=== PATIENT | male | born 1950 | race Caucasian/White ===

== ENCOUNTER 2019-02-28 13:31 | Inpatient (IN) | payer MEDICARE ==
[~2019-02-28] VITALS: Ht 175.3 cm; Wt 122.6 kg
[2019-02-28] MEDS ORDERED: [UNRECOGNIZED DRUG - CODE] PO (17:15)
[2019-02-28] MEDS ORDERED: LOPE2CAP PO (17:15)
[2019-02-28] MEDS ORDERED: WARF2.5T71 PO (17:15)
[2019-02-28] MEDS ORDERED: MULT1TAB52 PO (17:15)
[2019-02-28] MEDS ORDERED: POTA10TA12 PO (17:15)
[2019-02-28] MEDS ORDERED: ALLO100T PO (17:15)
[2019-02-28] MEDS ORDERED: CHOL100013 PO (17:15)
[2019-02-28] MEDS ORDERED: GLIM1TAB2 PO (17:15)
[2019-02-28] MEDS ORDERED: ASPI-630 PO (17:15)
[2019-02-28] MEDS ORDERED: LEVE500T6 PO (17:15)
[2019-02-28] MEDS ORDERED: LISI-338 PO (17:15)
[2019-02-28] MEDS ORDERED: ISOS30TA4 PO (17:15)
[2019-02-28] MEDS ORDERED: CARV3.1210 PO (17:15)
[2019-02-28] MEDS ORDERED: TORS20TA2 PO (17:15)
[2019-02-28] MEDS: CARVEDILOL 3.125 MG TABLET. PO SCH (17:55)
[2019-02-28] MEDS: WARFARIN 2.5 MG TABLET. PO SCH (17:55)
[2019-02-28 19:00] VITALS: BP 88/58
[2019-02-28] MEDS: LISINOPRIL 5 MG TABLET. PO SCH (21:00)
[2019-02-28] MEDS: guaiFENesin DM 600/30MG 1 TAB TAB.ER.12H PO SCH (21:15)
[2019-02-28] MEDS: levETIRAcetam 500 MG TABLET PO SCH (21:15)
[2019-02-28 23:46] VITALS: BP 104/65
[2019-03-01] VITALS (7 sets, daily range): BP systolic 90–119; BP diastolic 53–68
[2019-03-01 04:49] LABS: BASO # 0.1 x10^3/uL (0.0-0.2); BASO % 1 % (0-3); EOS # 0.3 x10^3/uL (0.0-0.7); EOS % 4 % (0-3); HEMATOCRIT 35.7 % (39.0-53.0); HEMOGLOBIN 11.4 g/dL (13.0-17.5); LYMPH % 14 % (24-48); MEAN CORPUSCULAR HEMOGLOBIN 29 pg (25-35); MEAN CORPUSCULAR HGB CONC 32 g/dL (31-37); MEAN CORPUSCULAR VOLUME 89 fL (79-100); MONO # 0.6 x10^3/uL (0.0-1.1); MONO % 9 % (0-9); NEUT # 5.1 x10^3uL (1.8-7.7); NEUT % 72 % (31-73); PLATELET COUNT 136 x10^3/uL (140-400); RED BLOOD COUNT 4.01 x10^6/uL (4.30-5.70); RED CELL DISTRIBUTION WIDTH 16.7 % (11.5-14.5); WHITE BLOOD COUNT 7.1 x10^3/uL (4.0-11.0)
[2019-03-01 05:28] LABS: ALBUMIN 3.1 g/dL (3.4-5.0); ALBUMIN/GLOBULIN RATIO 0.7 (1.0-1.7); CALCIUM 9.3 mg/dL (8.5-10.1); CREATININE 2.9 mg/dL (0.7-1.3); GFR 21.7; POTASSIUM 3.3 mmol/L (3.5-5.1); TOTAL BILIRUBIN 0.6 mg/dL (0.2-1.0); TOTAL PROTEIN 7.3 g/dL (6.4-8.2)
[2019-03-01] MEDS: CHOLECALCIFEROL (VITAMIN D3) 1,000 UNIT TABLET PO SCH (08:29)
[2019-03-01] MEDS: levETIRAcetam 500 MG TABLET PO SCH (08:32)
[2019-03-01] MEDS: MULTIVITAMIN with MINERAL TABLET. PO SCH (08:33)
[2019-03-01] MEDS: ASPIRIN CHEWABLE 81 MG TABLET. PO SCH (08:34)
[2019-03-01] MEDS: guaiFENesin DM 600/30MG 1 TAB TAB.ER.12H PO SCH ×2 (08:34→21:34)
[2019-03-01] MEDS: POTASSIUM CHLORIDE 10 MEQ TABLET.ER. PO SCH (08:34)
[2019-03-01] MEDS: ALLOPURINOL 100 MG TABLET. PO SCH (08:35)
[2019-03-01] MEDS: CARVEDILOL 3.125 MG TABLET. PO SCH ×2 (08:36→17:48)
[2019-03-01] MEDS: ISOSORBIDE MONONITRATE ER 30 MG TAB.ER.24H PO SCH (08:37)
[2019-03-01] MEDS: LISINOPRIL 5 MG TABLET. PO SCH ×2 (08:38→21:35)
[2019-03-01] MEDS ORDERED: LOPERAMIDE 2 MG CAPSULE PO SCH (09:00)
[2019-03-01] MEDS ORDERED: TORSEMIDE 20 MG TABLET. PO SCH (09:00)
[2019-03-01] MEDS ORDERED: GLIMEPIRIDE 2 MG TABLET. PO SCH (09:00)
--- NOTE | 2019-03-01 09:45 | PDOC1 ---
History and Physical Date of Admission Date of Admission DATE: 03/01/19 TIME: 09:45 Identification/Chief Complaint Chief Complaint Chest pain Source Source: Chart review, Patient History of Present Illness History of Present Illness Mr Flores is a 69 year old male with PMHx Morbid obesity, Chronic combined systolic and diastolic heart failure, EF 25%, Ellen, CAD, HTN, HLD, Sz (ruptured AVM, TBI), Gout, CKD IV, DM2. He apparently was initially diagnosed with heart failure in the and has most recently been evaluated by [facility] after a recent move from [place] where he was followed in a heart failure clinic and with n ephrology. He denies prior cardiac cath, but does note in [place], [place] in 2006 he presented with NSTEMI and was recommended to have cath at that time. [place] records indicate his prior refusal of cath as well. He denies any prior education or offer of ICD though records also indicate he has previously declined this as well, and he definitely refuses this with me. He reports chr onic severe lymphedema which has been worsening over the last several months, and notes he has home Lymphapress and velcro compression stockings. He reports chronic orthopnea and sleeping in a chair for the last couple years. [facility] has previously recommended IV diuretics and inotropic infusion weekly He reports his last episode of chest pain was yesterday relieved with nitrates. He denies palpitations but is chronically in atrial fibrillation for which he is on Coumadin with a therapeutic INR. Past Surgical History: Other (craniotoym, AVM, lipoma resection, vasectomy) Family History adopted Social History prior smoker, quit at age 20, no significant ETOH, no illicit drugs. Moved her from [place] in early January. Currently living [place]. He reports ill and taking care of young grandchildren. VITALS Vital Signs Date Time Temp Pulse Resp B/P (MAP) Pulse Ox O2 Delivery O2 Flow Rate FiO2 02/28/19 08:54 64 124/85 02/28/19 08:00 Nasal Cannula 2.0 02/28/19 06:55 20 96 02/28/19 06:12 97.7 Labs Laboratory Tests Test 02/27/19 15:00 02/27/19 16:45 02/27/19 16:50 02/27/19 16:57 D-Dimer (Naheed) 0.28 mg/L (0.00-0.50) White Blood Count 9.7 x10^3/uL (4.0-11.0) Red Blood Count 4.14 x10^6/uL (4.30-5.70) Hemoglobin 12.0 g/dL (13.0-17.5) Hematocrit 36.5 % (39.0-53.0) Mean Corpuscular Volume 88 fL (79-100) Mean Corpuscular Hemoglobin 29 pg (25-35) Mean Corpuscular Hemoglobin Concent 33 g/dL (31-37) Red Cell Distribution Width 16.1 % (11.5-14.5) Platelet Count 145 x10^3/uL (140-400) Neutrophils (%) (Auto) 78 % (31-73) Lymphocytes (%) (Auto) 10 % (24-48) Monocytes (%) (Auto) 9 % (0-9) Eosinophils (%) (Auto) 3 % (0-3) Basophils (%) (Auto) 1 % (0-3) Neutrophils # (Auto) 7.5 x10^3uL (1.8-7.7) Lymphocytes # (Auto) 0.9 x10^3/uL (1.0-4.8) Monocytes # (Auto) 0.9 x10^3/uL (0.0-1.1) Eosinophils # (Auto) 0.3 x10^3/uL (0.0-0.7) Basophils # (Auto) 0.1 x10^3/uL (0.0-0.2) Sodium Level 145 mmol/L (136-145) Potassium Level 3.3 mmol/L (3.5-5.1) Chloride Level 101 mmol/L (98-107) Carbon Dioxide Level 37 mmol/L (21-32) Anion Gap 7 (6-14) Blood Urea Nitrogen 142 mg/dL (8-26) Creatinine 2.6 mg/dL (0.7-1.3) Estimated GFR (Cockcroft-Gault) 24.6 BUN/Creatinine Ratio 55 (6-20) Glucose Level 155 mg/dL (70-99) Lactic Acid Level 0.7 mmol/L (0.4-2.0) Calcium Level 9.8 mg/dL (8.5-10.1) Total Bilirubin 0.3 mg/dL (0.2-1.0) Aspartate Amino Transf (AST/SGOT) 20 U/L (15-37) Alanine Aminotransferase (ALT/SGPT) 22 U/L (16-63) Alkaline Phosphatase 91 U/L (46-116) Troponin I Quantitative 0.085 ng/mL (0-0.055) SA-Gve-I-Type Natriuretic Peptide 1326 pg/mL (0-124) Total Protein 7.6 g/dL (6.4-8.2) Albumin 3.2 g/dL (3.4-5.0) Albumin/Globulin Ratio 0.7 (1.0-1.7) Prothrombin Time 19.3 SEC (9.4-11.4) Prothromb Time International Ratio 2.0 (0.9-1.1) Creatine Kinase 160 U/L (39-308) Glucose (Fingerstick) 145 mg/dL (70-99) Test 02/27/19 18:33 02/27/19 22:00 02/28/19 05:54 02/28/19 07:44 Urine Collection Type Unknown Urine Color Straw Urine Clarity Clear Urine pH 6.0 Urine Specific [place] 1.010 Urine Protein Neg (NEG-TRACE) Urine Glucose (UA) Neg mg/dL (NEG) Urine Ketones (Stick) Neg mg/dL (NEG) Urine Blood Trace (NEG) Urine Nitrite Neg (NEG) Urine Bilirubin Neg (NEG) Urine Urobilinogen Dipstick 0.2 mg/dL (0.2 mg/dL) Urine Leukocyte Esterase Neg (NEG) Urine RBC 0 /HPF (0-2) Urine WBC 0 /HPF (0-4) Urine Squamous Epithelial Cells Occ /LPF Urine Bacteria 0 /HPF (0-FEW) Troponin I Quantitative 0.094 ng/mL (0-0.055) 0.088 ng/mL (0-0.055) White Blood Count 7.7 x10^3/uL (4.0-11.0) Red Blood Count 4.10 x10^6/uL (4.30-5.70) Hemoglobin 11.9 g/dL (13.0-17.5) Hematocrit 36.3 % (39.0-53.0) Mean Corpuscular Volume 89 fL (79-100) Mean Corpuscular Hemoglobin 29 pg (25-35) Mean Corpuscular Hemoglobin Concent 33 g/dL (31-37) Red Cell Distribution Width 16.6 % (11.5-14.5) Platelet Count 134 x10^3/uL (140-400) Neutrophils (%) (Auto) 71 % (31-73) Lymphocytes (%) (Auto) 13 % (24-48) Monocytes (%) (Auto) 11 % (0-9) Eosinophils (%) (Auto) 4 % (0-3) Basophils (%) (Auto) 1 % (0-3) Neutrophils # (Auto) 5.4 x10^3uL (1.8-7.7) Lymphocytes # (Auto) 1.0 x10^3/uL (1.0-4.8) Monocytes # (Auto) 0.8 x10^3/uL (0.0-1.1) Eosinophils # (Auto) 0.3 x10^3/uL (0.0-0.7) Basophils # (Auto) 0.1 x10^3/uL (0.0-0.2) Prothrombin Time 21.4 SEC (9.4-11.4) Prothromb Time International Ratio 2.2 (0.9-1.1) Sodium Level 145 mmol/L (136-145) Potassium Level 3.1 mmol/L (3.5-5.1) Chloride Level 102 mmol/L (98-107) Carbon Dioxide Level 35 mmol/L (21-32) Anion Gap 8 (6-14) Blood Urea Nitrogen 141 mg/dL (8-26) Creatinine 2.5 mg/dL (0.7-1.3) Estimated GFR (Cockcroft-Gault) 25.7 Glucose Level 147 mg/dL (70-99) Calcium Level 9.1 mg/dL (8.5-10.1) Glucose (Fingerstick) 134 mg/dL (70-99) Images CXR - IMPRESSION: Mild atelectasis versus possible small infiltrate lung bases. EKG - atrial fibrillation, CVR, left axis and early R transition. No acute ischemic changes Assessment/Plan 1. Chest pain, resolved with nitrates. mild troponin elevation consistent with NSTEMI. currently pain free. Check echo, lipids, continue aspirin, imdur and beta maurilio. 2. Prior MO and presumed CAD - no prior cardiac cath though it is unclear as to a possible prior refusal on the patients part. 3. acute on chronic combined systolic and diastolic heart failure - clinically decompensated and NYHA class III-IV. 4. severe dilated cardiomyopathy - EF 25% in 2016. repeat echo, continue current beta maurilio, ACEI, bumex and nitrates. consider Entresto when stable. 5. CKD stage IV - suggest nephrology evaluation 6. Hypertension - fair control. goal SBY >/=90 mmHg with EF 25% 7. chronic atrial fibrillation with CVR, history of bradycardia. On Warfarin for stroke prophylaxis with INR of 2.2 8. Chronic lymphedema 9. diabetes mellitus 10. morbid obesity Family History Family History: Coronary Artery Disease Social History Smoke: No ALCOHOL: none Drugs: None Current Medications Current Medications Current Medications Allopurinol (Zyloprim) 100 mg DAILY PO Last administered on 03/01/19 08:35; Start 03/01/19 at 09:00 Aspirin (Children'S Aspirin) 81 mg DAILY PO Last administered on 03/01/19 08:34; Start 03/01/19 at 09:00 Carvedilol (Coreg) 3.125 mg BIDWMEALS PO Last administered on 03/01/19 08:36; Start 02/28/19 at 18:00 Isosorbide Mononitrate (Imdur) 30 mg DAILY PO Last administered on 03/01/19 08:37; Start 03/01/19 at 09:00 Levetiracetam (Keppra) 500 mg BID PO Last administered on 03/01/19 08:32; Start 02/28/19 at 21:00 Potassium Chloride (Klor-Con) 10 meq DAILY08 PO Last administered on 03/01/19at 08:34; Start 03/01/19 at 08:00 Warfarin Sodium (Coumadin - No Dose Today) 1 each DAILY MC ; Start 03/01/19 at 09:00; Status UNV Vitamin D (Vitamin D3) 1,000 unit DAILY PO Last administered on 03/01/19at 08:29; Start 03/01/19 at 09:00 Glimepiride (Amaryl) 1 mg DAILY PO Last administered on 03/01/19at 08:37; Start 03/01/19 at 09:00 Guaifenesin (MUCINEX ER with DM) 1 tab BID PO Last administered on 03/01/19at 08:34; Start 02/28/19 at 21:00 Lisinopril (Prinivil) 5 mg BID PO Last administered on 03/01/19at 08:38; Start 02/28/19 at 21:00 Loperamide HCl (Imodium) 2 mg DAILY PO ; Start 03/01/19 at 09:00; Stop 03/01/19 at 09:27; Status DC Multivitamins (Thera M Plus) 1 tab DAILY PO Last administered on 03/01/19at 08:33; Start 03/01/19 at 09:00 Torsemide (Demadex) 20 mg DAILY PO ; Start 03/01/19 at 09:00 Warfarin Sodium (Coumadin Per Pharmacy) 1 each PRN DAILY PRN MC SEE COMMENTS Last administered on 02/28/19at 17:48; Start 02/28/19 at 17:30 Warfarin Sodium (Coumadin) 2.5 mg DAILY16 PO Last administered on 02/28/19at 17:55; Start 02/28/19 at 18:00 Loperamide HCl (Immodium Oral Susp) 1 mg DAILY PO ; Start 03/01/19 at 09:45 Active Scripts Active Reported Glimepiride 1 Mg Tablet 1 Tab PO DAILY Vitamin D (Cholecalciferol (Vitamin D3)) 1,000 Unit Capsule 1 Cap PO DAILY Isosorbide Mononitrate Er (Isosorbide Mononitrate) 30 Mg Tab.er.24h 1 Tab PO DAILY Guaifenesin 1,200 Mg Tab.er.12h 1,200 Mg PO PRN 3-4XDAILY Potassium Chloride 10 Meq Tab.sr.24h 10 Meq PO DAILY Lisinopril 5 Mg Tablet 1 Tab PO BID Multivitamins (Multivitamin) 1 Each Tablet 1 Tab PO DAILY Aspirin 81 Mg Tab.chew 1 Tab PO DAILY Warfarin Sodium 2.5 Mg Tablet 2.5 Mg PO DAILY Loperamide (Loperamide Hcl) 2 Mg Capsule 1 Mg PO DAILY Levetiracetam 500 Mg Tablet 1 Tab PO BID Torsemide 20 Mg Tablet 5 Tab PO DAILY Carvedilol (Carvedilol) 3.125 Mg Tablet 3.125 Mg PO BIDWMEALS Allopurinol 100 Mg Tablet 1 Tab PO DAILY Allergies Allergies: Coded Allergies: Sulfa (Sulfonamide Antibiotics) (Verified Allergy, Intermediate, 02/28/19) milk (Verified Allergy, Intermediate, 02/28/19) ROS Review of System General: YES: Fatigue PSYCHOLOGICAL ROS: YES: Memory difficulties, Other (increased stress) HEENT: YES: Vertigo ENDOCRINE: YES: Palpitations Respiratory: YES: Cough, Orthopnea, SOB with excertion Cardiovascular: yes: Chest Pain, Palpitations, Orthopnea, Paroxysmal Noc. Dyspnea, Edema Gastrointestinal: YES: Other (abdominal distension) Musculoskeletal: YES: Other (lymphedema) Skin: YES: Other (weeping sores and erythema bilateral lower extremities with chronic lymphedema left>right. uses compression garmet and pump for lymphedema treatment) ALLERGY AND IMMUNOLOGY: No: Hives, Insect Bite Sensitivity, Itchy/Watery Eyes, Nasal Congestion, Post Nasal Drip, Seasonal Allergies, Other Hematological and Lymphatic: No: Bleeding Problems, Blood Clots, Blood Transfusions, Brusing, Night Sweats, Pallor, Swollen Lymph Nodes, Other Breast: No New/Changing Breast Lumps, No Nipple changes, No Nipple discharge, No Other Genitourinary: YES Urgency; No Dysuria, No Frequency, No Incontinence, No Hematuria, No Retention, No Discharge, No Pain, No Flank Pain, No Other, No , No , No , No , No , No , No Neurological: No Behavorial Changes, No Bowel/Bladder ControlChng, No Confusion, No Dizziness, No Gait Disturbance, No Headaches, No Impaired Coord/balance, No Memory Loss, No Numbness/Tingling, No Seizures, No Speech Problems, No Tremors, No Visual Changes, No Weakness, No Other Physical Exam General: Alert, Cooperative HEENT: Atraumatic, PERRLA, EOMI, Mucous membr. moist/pink Lungs: Other (Bibasilar crackles) Heart: S1S2, RRR Abdomen: Normal bowel sounds, Soft, No tenderness, No hepatosplenomegaly, No masses Rectal Exam: not examined Extremities: No clubbing, No cyanosis, Normal pulses, No tenderness/swelling Skin: No rashes, No breakdown, No significant lesion Neuro: Normal gait, Normal speech, Strength at 5/5 X4 ext, Normal tone, Sensation intact, Cranial nerves 3-12 NL, Reflexes 2+ Psych/Mental Status: Mental status NL, Mood NL Vitals Vitals Vital Signs Date Time Temp Pulse Resp B/P (MAP) Pulse Ox O2 Delivery O2 Flow Rate FiO2 03/01/19 08:38 78 03/01/19 08:34 117/64 (81) 03/01/19 07:00 98.0 22 97 Nasal Cannula 2.0 98.0 Labs Labs Laboratory Tests Test 02/28/19 17:01 02/28/19 21:00 03/01/19 04:00 03/01/19 07:20 Glucose (Fingerstick) 145 mg/dL (70-99) 178 mg/dL (70-99) 134 mg/dL (70-99) White Blood Count 7.1 x10^3/uL (4.0-11.0) Red Blood Count 4.01 x10^6/uL (4.30-5.70) Hemoglobin 11.4 g/dL (13.0-17.5) Hematocrit 35.7 % (39.0-53.0) Mean Corpuscular Volume 89 fL (79-100) Mean Corpuscular Hemoglobin 29 pg (25-35) Mean Corpuscular Hemoglobin Concent 32 g/dL (31-37) Red Cell Distribution Width 16.7 % (11.5-14.5) Platelet Count 136 x10^3/uL (140-400) Neutrophils (%) (Auto) 72 % (31-73) Lymphocytes (%) (Auto) 14 % (24-48) Monocytes (%) (Auto) 9 % (0-9) Eosinophils (%) (Auto) 4 % (0-3) Basophils (%) (Auto) 1 % (0-3) Neutrophils # (Auto) 5.1 x10^3uL (1.8-7.7) Lymphocytes # (Auto) 1.0 x10^3/uL (1.0-4.8) Monocytes # (Auto) 0.6 x10^3/uL (0.0-1.1) Eosinophils # (Auto) 0.3 x10^3/uL (0.0-0.7) Basophils # (Auto) 0.1 x10^3/uL (0.0-0.2) Sodium Level 146 mmol/L (136-145) Potassium Level 3.3 mmol/L (3.5-5.1) Chloride Level 100 mmol/L (98-107) Carbon Dioxide Level 38 mmol/L (21-32) Anion Gap 8 (6-14) Blood Urea Nitrogen 146 mg/dL (8-26) Creatinine 2.9 mg/dL (0.7-1.3) Estimated GFR (Cockcroft-Gault) 21.7 BUN/Creatinine Ratio 50 (6-20) Glucose Level 146 mg/dL (70-99) Calcium Level 9.3 mg/dL (8.5-10.1) Total Bilirubin 0.6 mg/dL (0.2-1.0) Aspartate Amino Transf (AST/SGOT) 19 U/L (15-37) Alanine Aminotransferase (ALT/SGPT) 21 U/L (16-63) Alkaline Phosphatase 79 U/L (46-116) Total Protein 7.3 g/dL (6.4-8.2) Albumin 3.1 g/dL (3.4-5.0) Albumin/Globulin Ratio 0.7 (1.0-1.7) Laboratory Tests Test 02/28/19 17:01 02/28/19 21:00 03/01/19 04:00 03/01/19 07:20 Glucose (Fingerstick) 145 mg/dL (70-99) 178 mg/dL (70-99) 134 mg/dL (70-99) White Blood Count 7.1 x10^3/uL (4.0-11.0) Red Blood Count 4.01 x10^6/uL (4.30-5.70) Hemoglobin 11.4 g/dL (13.0-17.5) Hematocrit 35.7 % (39.0-53.0) Mean Corpuscular Volume 89 fL (79-100) Mean Corpuscular Hemoglobin 29 pg (25-35) Mean Corpuscular Hemoglobin Concent 32 g/dL (31-37) Red Cell Distribution Width 16.7 % (11.5-14.5) Platelet Count 136 x10^3/uL (140-400) Neutrophils (%) (Auto) 72 % (31-73) Lymphocytes (%) (Auto) 14 % (24-48) Monocytes (%) (Auto) 9 % (0-9) Eosinophils (%) (Auto) 4 % (0-3) Basophils (%) (Auto) 1 % (0-3) Neutrophils # (Auto) 5.1 x10^3uL (1.8-7.7) Lymphocytes # (Auto) 1.0 x10^3/uL (1.0-4.8) Monocytes # (Auto) 0.6 x10^3/uL (0.0-1.1) Eosinophils # (Auto) 0.3 x10^3/uL (0.0-0.7) Basophils # (Auto) 0.1 x10^3/uL (0.0-0.2) Sodium Level 146 mmol/L (136-145) Potassium Level 3.3 mmol/L (3.5-5.1) Chloride Level 100 mmol/L (98-107) Carbon Dioxide Level 38 mmol/L (21-32) Anion Gap 8 (6-14) Blood Urea Nitrogen 146 mg/dL (8-26) Creatinine 2.9 mg/dL (0.7-1.3) Estimated GFR (Cockcroft-Gault) 21.7 BUN/Creatinine Ratio 50 (6-20) Glucose Level 146 mg/dL (70-99) Calcium Level 9.3 mg/dL (8.5-10.1) Total Bilirubin 0.6 mg/dL (0.2-1.0) Aspartate Amino Transf (AST/SGOT) 19 U/L (15-37) Alanine Aminotransferase (ALT/SGPT) 21 U/L (16-63) Alkaline Phosphatase 79 U/L (46-116) Total Protein 7.3 g/dL (6.4-8.2) Albumin 3.1 g/dL (3.4-5.0) Albumin/Globulin Ratio 0.7 (1.0-1.7) VTE Prophylaxis Ordered VTE Prophylaxis Devices: Yes VTE Pharmacological Prophylaxi: Yes Assessment/Plan Assessment/Plan A/P: Acute on Chronic combined systolic and diastolic heart failure, EF 25% - on torsemide 100mg daily, previously. On statin, ASA, BB, on ADAN, will watch with CKD - on Imdur + hydralazine per EFT recommendations, not on spironolactone at this time, will d/w nephrology and cardiology as his CKD is a relative contraindication for this. 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 Nephrology consulted. May currently have cardiorenal syndrome, will diurese. Of note, he has made it clear he will never undergo dialysis DM2 - basal bolus plus regimen in house FEN - Cardiac diet PPX - Coumadin DNR/DNI Dispo - inpatient for acute CHF exacerbation with [facility]LE[facility]. Likely 2 midnights inpatient. SINAN RIVERO MD March 01, 2019 09:45
[2019-03-01] MEDS ORDERED: POTASSIUM CHLORIDE 20 MEQ TABLET.ER. PO ONE (11:15)
[2019-03-01] MEDS ORDERED: DEXTROSE 50% 25 GM / 50ML DISP.SYRIN. IV PRN (11:30)
[2019-03-01 11:37] LABS: PROTHROMBIN TIME PATIENT 24.9 SEC (11.7-14.0)
[2019-03-01] MEDS: INSULIN LISPRO 300 UNITS/3 ML INSULN.PEN. SQ SCH ×3 (12:00→21:00)
--- NOTE | 2019-03-01 12:11 | PDOC2 ---
CONSULT Date of Consult Date of Consult DATE: 03/01/19 TIME: 12:03 Reason for Consult Reason for Consult: ELENA Referring Physician Referring Physician: JOSEFA Identification/Chief Complaint Chief Complaint SOB Source Source: Chart review, Patient History of Present Illness Reason for Visit: THIS IS A 69 YR OLD WITH SOB AND ADMITTED WITH CHF. JUST MOVED HERE FROM [place], [place]. CR OF 2.9 AND BUN OF 146. HAS BEEN ON TORSEMIDE 100 DAILY AND A THIAZIDE. STATES THAT HE WAS SEEING A PROFESSOR OF ENVIRONMENTAL SCIENCE BACK THERE AND WAS TOLD THAT HIS KIDNEYS WORK AT 25%. STATES THAT HE ALWAYS HAS A HARD TIME LAYING FLAT AND CANNOT SLEEP IN THAT POSITION. DENIED ANY PROBLEMS EMPTYING HIS BLADDER AND DOES NOT HAVE ANY OTHER HX. NO NEPHROTOXINS OR HEMODYNAMIC INSTABILITY NOTED. HAS ALSO BEEN ON LISINOPRIL AND I SUSPECT HE HAS CM Past Medical History Cardiovascular: CAD, CHF, HTN Renal/: Chronic renal failure Endocrine: Diabetes Family History Family History: Coronary Artery Disease Social History No ALCOHOL: none Drugs: None Current Medications Current Medications Current Medications Allopurinol (Zyloprim) 100 mg DAILY PO Last administered on 03/01/19at 08:35; Start 03/01/19 at 09:00 Aspirin (Children'S Aspirin) 81 mg DAILY PO Last administered on 03/01/19at 08:34; Start 03/01/19 at 09:00 Carvedilol (Coreg) 3.125 mg BIDWMEALS PO Last administered on 03/01/19at 08:36; Start 02/28/19 at 18:00 Isosorbide Mononitrate (Imdur) 30 mg DAILY PO Last administered on 03/01/19at 08:37; Start 03/01/19 at 09:00 Levetiracetam (Keppra) 500 mg BID PO Last administered on 03/01/19at 08:32; Start 02/28/19 at 21:00; Stop 03/01/19 at 11:33; Status DC Potassium Chloride (Klor-Con) 10 meq DAILY08 PO Last administered on 03/01/19at 08:34; Start 03/01/19 at 08:00 Warfarin Sodium (Coumadin - No Dose Today) 1 each DAILY MC ; Start 03/01/19 at 09:00; Status UNV Vitamin D (Vitamin D3) 1,000 unit DAILY PO Last administered on 03/01/19at 08:29; Start 03/01/19 at 09:00 Glimepiride (Amaryl) 1 mg DAILY PO Last administered on 03/01/19at 08:37; Start 03/01/19 at 09:00; Stop 03/01/19 at 11:33; Status DC Guaifenesin (MUCINEX ER with DM) 1 tab BID PO Last administered on 03/01/19at 08:34; Start 02/28/19 at 21:00 Lisinopril (Prinivil) 5 mg BID PO Last administered on 03/01/19at 08:38; Start 02/28/19 at 21:00 Loperamide HCl (Imodium) 2 mg DAILY PO ; Start 03/01/19 at 09:00; Stop 03/01/19 at 09:27; Status DC Multivitamins (Thera M Plus) 1 tab DAILY PO Last administered on 03/01/19at 08:33; Start 03/01/19 at 09:00 Torsemide (Demadex) 20 mg DAILY PO ; Start 03/01/19 at 09:00; Stop 03/01/19 at 10:50; Status DC Warfarin Sodium (Coumadin Per Pharmacy) 1 each PRN DAILY PRN MC SEE COMMENTS Last administered on 02/28/19at 17:48; Start 02/28/19 at 17:30 Warfarin Sodium (Coumadin) 2.5 mg DAILY16 PO Last administered on 02/28/19at 17:55; Start 02/28/19 at 18:00 Loperamide HCl (Immodium Oral Susp) 1 mg DAILY PO ; Start 03/01/19 at 09:45 Bumetanide (Bumex) 5 mg DAILY IV ; Start 03/01/19 at 11:15 Potassium Chloride (Klor-Con) 20 meq 1X ONCE PO ; Start 03/01/19 at 11:15; Stop 03/01/19 at 11:21; Status DC Insulin Glargine (Lantus) 4 units QHS SQ ; Start 03/01/19 at 21:00 Insulin Human Lispro (HumaLOG) 0-5 UNITS TIDWMEALHC SQ ; Start 03/01/19 at 12:00 Dextrose (Dextrose 50%-Water Syringe) 12.5 gm PRN Q15MIN PRN IV SEE COMMENTS; Start 03/01/19 at 11:30 Hydralazine HCl (Apresoline) 10 mg TID PO ; Start 03/01/19 at 14:00 Active Scripts Active Reported Glimepiride 1 Mg Tablet 1 Tab PO DAILY Vitamin D (Cholecalciferol (Vitamin D3)) 1,000 Unit Capsule 1 Cap PO DAILY Isosorbide Mononitrate Er (Isosorbide Mononitrate) 30 Mg Tab.er.24h 1 Tab PO DAILY Guaifenesin 1,200 Mg Tab.er.12h 1,200 Mg PO PRN 3-4XDAILY Potassium Chloride 10 Meq Tab.sr.24h 10 Meq PO DAILY Lisinopril 5 Mg Tablet 1 Tab PO BID Multivitamins (Multivitamin) 1 Each Tablet 1 Tab PO DAILY Aspirin 81 Mg Tab.chew 1 Tab PO DAILY Warfarin Sodium 2.5 Mg Tablet 2.5 Mg PO DAILY Loperamide (Loperamide Hcl) 2 Mg Capsule 1 Mg PO DAILY Levetiracetam 500 Mg Tablet 1 Tab PO BID Torsemide 20 Mg Tablet 5 Tab PO DAILY Carvedilol (Carvedilol) 3.125 Mg Tablet 3.125 Mg PO BIDWMEALS Allopurinol 100 Mg Tablet 1 Tab PO DAILY Allergies Allergies: Coded Allergies: Sulfa (Sulfonamide Antibiotics) (Verified Allergy, Intermediate, 02/28/19) milk (Verified Allergy, Intermediate, 02/28/19) ROS General: YES: Fatigue PSYCHOLOGICAL ROS: YES: Anxiety Eyes: Yes Decreased vision HEENT: YES: Heacaches Respiratory: YES: Cough, Orthopnea, Shortness of breath Cardiovascular: yes Edema Gastrointestinal: Yes Constipation Genitourinary: YES Other (NOCTURIA) Musculoskeletal: Yes Muscular Weakness Neurological: Yes Weakness Skin: Yes Dry Skin Physical Exam General: Alert, Oriented X3, Cooperative, No acute distress HEENT: Atraumatic, PERRLA, EOMI Lungs: Other (DECREASED AT BASES) Heart: Regular rate, Normal S1, Normal S2 Abdomen: Normal bowel sounds, Soft Extremities: No clubbing, No cyanosis Skin: No breakdown Neuro: Normal speech Psych/Mental Status: Mental status NL, Mood NL MUSCULOSKELETAL: No joint tenderness, No deformity, Other (BELOW KNEE EDEMA 3+) Vitals VITALS Vital Signs Date Time Temp Pulse Resp B/P (MAP) Pulse Ox O2 Delivery O2 Flow Rate FiO2 03/01/19 10:46 97.6 71 22 104/55 (71) 95 Nasal Cannula 2.0 97.6 Labs Labs Laboratory Tests Test 02/28/19 17:01 02/28/19 21:00 03/01/19 04:00 03/01/19 07:20 Glucose (Fingerstick) 145 mg/dL (70-99) 178 mg/dL (70-99) 134 mg/dL (70-99) White Blood Count 7.1 x10^3/uL (4.0-11.0) Red Blood Count 4.01 x10^6/uL (4.30-5.70) Hemoglobin 11.4 g/dL (13.0-17.5) Hematocrit 35.7 % (39.0-53.0) Mean Corpuscular Volume 89 fL (79-100) Mean Corpuscular Hemoglobin 29 pg (25-35) Mean Corpuscular Hemoglobin Concent 32 g/dL (31-37) Red Cell Distribution Width 16.7 % (11.5-14.5) Platelet Count 136 x10^3/uL (140-400) Neutrophils (%) (Auto) 72 % (31-73) Lymphocytes (%) (Auto) 14 % (24-48) Monocytes (%) (Auto) 9 % (0-9) Eosinophils (%) (Auto) 4 % (0-3) Basophils (%) (Auto) 1 % (0-3) Neutrophils # (Auto) 5.1 x10^3uL (1.8-7.7) Lymphocytes # (Auto) 1.0 x10^3/uL (1.0-4.8) Monocytes # (Auto) 0.6 x10^3/uL (0.0-1.1) Eosinophils # (Auto) 0.3 x10^3/uL (0.0-0.7) Basophils # (Auto) 0.1 x10^3/uL (0.0-0.2) Prothrombin Time 24.9 SEC (11.7-14.0) Prothromb Time International Ratio 2.3 (0.8-1.1) Sodium Level 146 mmol/L (136-145) Potassium Level 3.3 mmol/L (3.5-5.1) Chloride Level 100 mmol/L (98-107) Carbon Dioxide Level 38 mmol/L (21-32) Anion Gap 8 (6-14) Blood Urea Nitrogen 146 mg/dL (8-26) Creatinine 2.9 mg/dL (0.7-1.3) Estimated GFR (Cockcroft-Gault) 21.7 BUN/Creatinine Ratio 50 (6-20) Glucose Level 146 mg/dL (70-99) Calcium Level 9.3 mg/dL (8.5-10.1) Magnesium Level 1.9 mg/dL (1.8-2.4) Total Bilirubin 0.6 mg/dL (0.2-1.0) Aspartate Amino Transf (AST/SGOT) 19 U/L (15-37) Alanine Aminotransferase (ALT/SGPT) 21 U/L (16-63) Alkaline Phosphatase 79 U/L (46-116) Total Protein 7.3 g/dL (6.4-8.2) Albumin 3.1 g/dL (3.4-5.0) Albumin/Globulin Ratio 0.7 (1.0-1.7) Test 03/01/19 11:27 Glucose (Fingerstick) 146 mg/dL (70-99) Laboratory Tests Test 02/28/19 17:01 02/28/19 21:00 03/01/19 04:00 03/01/19 07:20 Glucose (Fingerstick) 145 mg/dL (70-99) 178 mg/dL (70-99) 134 mg/dL (70-99) White Blood Count 7.1 x10^3/uL (4.0-11.0) Red Blood Count 4.01 x10^6/uL (4.30-5.70) Hemoglobin 11.4 g/dL (13.0-17.5) Hematocrit 35.7 % (39.0-53.0) Mean Corpuscular Volume 89 fL (79-100) Mean Corpuscular Hemoglobin 29 pg (25-35) Mean Corpuscular Hemoglobin Concent 32 g/dL (31-37) Red Cell Distribution Width 16.7 % (11.5-14.5) Platelet Count 136 x10^3/uL (140-400) Neutrophils (%) (Auto) 72 % (31-73) Lymphocytes (%) (Auto) 14 % (24-48) Monocytes (%) (Auto) 9 % (0-9) Eosinophils (%) (Auto) 4 % (0-3) Basophils (%) (Auto) 1 % (0-3) Neutrophils # (Auto) 5.1 x10^3uL (1.8-7.7) Lymphocytes # (Auto) 1.0 x10^3/uL (1.0-4.8) Monocytes # (Auto) 0.6 x10^3/uL (0.0-1.1) Eosinophils # (Auto) 0.3 x10^3/uL (0.0-0.7) Basophils # (Auto) 0.1 x10^3/uL (0.0-0.2) Prothrombin Time 24.9 SEC (11.7-14.0) Prothromb Time International Ratio 2.3 (0.8-1.1) Sodium Level 146 mmol/L (136-145) Potassium Level 3.3 mmol/L (3.5-5.1) Chloride Level 100 mmol/L (98-107) Carbon Dioxide Level 38 mmol/L (21-32) Anion Gap 8 (6-14) Blood Urea Nitrogen 146 mg/dL (8-26) Creatinine 2.9 mg/dL (0.7-1.3) Estimated GFR (Cockcroft-Gault) 21.7 BUN/Creatinine Ratio 50 (6-20) Glucose Level 146 mg/dL (70-99) Calcium Level 9.3 mg/dL (8.5-10.1) Magnesium Level 1.9 mg/dL (1.8-2.4) Total Bilirubin 0.6 mg/dL (0.2-1.0) Aspartate Amino Transf (AST/SGOT) 19 U/L (15-37) Alanine Aminotransferase (ALT/SGPT) 21 U/L (16-63) Alkaline Phosphatase 79 U/L (46-116) Total Protein 7.3 g/dL (6.4-8.2) Albumin 3.1 g/dL (3.4-5.0) Albumin/Globulin Ratio 0.7 (1.0-1.7) Test 03/01/19 11:27 Glucose (Fingerstick) 146 mg/dL (70-99) Assessment/Plan Assessment/Plan IMP ELENA WITH CR OF 2.9 AND BUN OF 146 CKD STAGE 4 CHF - ACUTE SYSTOLIC AND DIASTOLIC AFIB HX-ANTICOAGULATION DM II HX PLAN DIURESE CONT ADAN-I IF UNABLE TO DIURESE AND OR RENAL FXN IS WORSE HE WILL NEED DIALYSIS PT STATES THAT HE WILL NEVER DO DIALYSIS WILL CONT WITH SUPPORTIVE CARE FOR NOW MALLORIE HOLT MD March 01, 2019 12:11
--- NOTE | 2019-03-01 12:24 | NUR ---
Pharmacy Warfarin Dosing Note S:Pharmacy consulted to assist with anticoagulation therapy started with target INR: 2 -3 O:MILLA HEALY is a 69 year old M with Atrial Fibrillation LABS: Last INR: 2.3 Last HGB: 11.4 Last HCT: 35.7 Last PLT: 136 Last dose of 2.5 mg given on 02/28/19 at 1755 Previous Regimen: 2.5mg daily Vitamin K given: N Drug Interaction Changes: Ongoing Drug Interactions: A:INR of 2.3 is within desired range. Target range for this patient is: 2 -3 P: Warfarin dose: 2.5 mg Today at 1600 Bridge Therapy: None Next INR due 03/02/19 Pharmacy anticoagulation service will continue to follow. JEAN MARIE STEINBERG RPH, 03/01/19 [id number]
[2019-03-01] MEDS: BUMETANIDE 2.5 MG/10 ML VIAL. IV SCH (13:08)
[2019-03-01] MEDS: LOPERAMIDE 2 MG/15 ML ORAL SUSP. PO SCH (13:09)
--- NOTE | 2019-03-01 13:36 | NUR ---
FACULTY CO-SIGN I have reviewed the documentation by Aleksey Flores nursing home administrator, [facility]: Addendum: 03/01/19 at 1337 by ROSE ORTIZ RN Amended: Links added.
[2019-03-01] MEDS: hydrALAZINE 10 MG TABLET PO SCH ×2 (14:00→21:35)
--- NOTE | 2019-03-01 14:33 | PDOC ---
PROGRESS NOTES Subjective Subjective Patient seen and examined He is feeling better today and his pain has largely resolved. He was initially seen as a consult at [facility] and transferred yesterday to [place] for continued workup with additional consultants. Objective Objective Vital Signs Date Time Temp Pulse Resp B/P (MAP) Pulse Ox O2 Delivery O2 Flow Rate FiO2 03/01/19 10:46 97.6 71 22 104/55 (71) 95 Nasal Cannula 2.0 97.6 Intake and Output 03/01/19 07:00 Intake Total 200 ml Output Total 100 ml Balance 100 ml Intake Oral 200 ml Output Urine Total 100 ml # Voids 2 # Bowel Movements 1 Physical Exam Abdomen: Normal bowel sounds Heart: Other (irregularly irregular) General: mild distress Lungs: Other (mildly decreased breath sounds) Assessment Assessment 1. Non-ST elevated myocardial infarction. Patient initially evaluated at [facility] and transferred for further workup. He is now chest pain free. Echocardiogram has shown an ejection fraction of 25% and he does have a history of coronary artery disease. We discussed various options and the patient is quite clear in his wish not to have any invasive treatments including catheterizations. This has been discussed with the patient previously in other locations and he has refused previous interventions. He is looking and feeling better today. We will continue on baseline medical treatment. We'll continue to closely monitor. 2. Acute on chronic systolic heart failure with cardiomyopathy. Ejection frac tion of 25%. Responding reasonably well to treatment and will continue treatment with monitoring the patient's renal function. Again he has had previous discussions about AICD placement and he does not wish an AICD. 3. Chronic kidney disease. Creatinine is elevated as noted above. The renal service is seeing the patient. He is also expressed his wish not to have any dialysis treatment. 4. Hypertension. Reasonably controlled at this time. 5. Chronic atrial fibrillation. Rate controlled. Patient is treated with Coumadin with a therapeutic INR. Thank you for allowing us to participate in the care of your patient. Comment Review of Relevant I have reviewed the following items angeline (where applicable) has been applied. Labs Laboratory Tests Test 02/28/19 17:01 02/28/19 21:00 03/01/19 04:00 03/01/19 07:20 Glucose (Fingerstick) 145 mg/dL (70-99) 178 mg/dL (70-99) 134 mg/dL (70-99) White Blood Count 7.1 x10^3/uL (4.0-11.0) Red Blood Count 4.01 x10^6/uL (4.30-5.70) Hemoglobin 11.4 g/dL (13.0-17.5) Hematocrit 35.7 % (39.0-53.0) Mean Corpuscular Volume 89 fL (79-100) Mean Corpuscular Hemoglobin 29 pg (25-35) Mean Corpuscular Hemoglobin Concent 32 g/dL (31-37) Red Cell Distribution Width 16.7 % (11.5-14.5) Platelet Count 136 x10^3/uL (140-400) Neutrophils (%) (Auto) 72 % (31-73) Lymphocytes (%) (Auto) 14 % (24-48) Monocytes (%) (Auto) 9 % (0-9) Eosinophils (%) (Auto) 4 % (0-3) Basophils (%) (Auto) 1 % (0-3) Neutrophils # (Auto) 5.1 x10^3uL (1.8-7.7) Lymphocytes # (Auto) 1.0 x10^3/uL (1.0-4.8) Monocytes # (Auto) 0.6 x10^3/uL (0.0-1.1) Eosinophils # (Auto) 0.3 x10^3/uL (0.0-0.7) Basophils # (Auto) 0.1 x10^3/uL (0.0-0.2) Prothrombin Time 24.9 SEC (11.7-14.0) Prothromb Time International Ratio 2.3 (0.8-1.1) Sodium Level 146 mmol/L (136-145) Potassium Level 3.3 mmol/L (3.5-5.1) Chloride Level 100 mmol/L (98-107) Carbon Dioxide Level 38 mmol/L (21-32) Anion Gap 8 (6-14) Blood Urea Nitrogen 146 mg/dL (8-26) Creatinine 2.9 mg/dL (0.7-1.3) Estimated GFR (Cockcroft-Gault) 21.7 BUN/Creatinine Ratio 50 (6-20) Glucose Level 146 mg/dL (70-99) Calcium Level 9.3 mg/dL (8.5-10.1) Magnesium Level 1.9 mg/dL (1.8-2.4) Total Bilirubin 0.6 mg/dL (0.2-1.0) Aspartate Amino Transf (AST/SGOT) 19 U/L (15-37) Alanine Aminotransferase (ALT/SGPT) 21 U/L (16-63) Alkaline Phosphatase 79 U/L (46-116) Total Protein 7.3 g/dL (6.4-8.2) Albumin 3.1 g/dL (3.4-5.0) Albumin/Globulin Ratio 0.7 (1.0-1.7) Test 03/01/19 11:27 Glucose (Fingerstick) 146 mg/dL (70-99) Laboratory Tests Test 02/28/19 17:01 02/28/19 21:00 03/01/19 04:00 03/01/19 07:20 Glucose (Fingerstick) 145 mg/dL (70-99) 178 mg/dL (70-99) 134 mg/dL (70-99) White Blood Count 7.1 x10^3/uL (4.0-11.0) Red Blood Count 4.01 x10^6/uL (4.30-5.70) Hemoglobin 11.4 g/dL (13.0-17.5) Hematocrit 35.7 % (39.0-53.0) Mean Corpuscular Volume 89 fL (79-100) Mean Corpuscular Hemoglobin 29 pg (25-35) Mean Corpuscular Hemoglobin Concent 32 g/dL (31-37) Red Cell Distribution Width 16.7 % (11.5-14.5) Platelet Count 136 x10^3/uL (140-400) Neutrophils (%) (Auto) 72 % (31-73) Lymphocytes (%) (Auto) 14 % (24-48) Monocytes (%) (Auto) 9 % (0-9) Eosinophils (%) (Auto) 4 % (0-3) Basophils (%) (Auto) 1 % (0-3) Neutrophils # (Auto) 5.1 x10^3uL (1.8-7.7) Lymphocytes # (Auto) 1.0 x10^3/uL (1.0-4.8) Monocytes # (Auto) 0.6 x10^3/uL (0.0-1.1) Eosinophils # (Auto) 0.3 x10^3/uL (0.0-0.7) Basophils # (Auto) 0.1 x10^3/uL (0.0-0.2) Prothrombin Time 24.9 SEC (11.7-14.0) Prothromb Time International Ratio 2.3 (0.8-1.1) Sodium Level 146 mmol/L (136-145) Potassium Level 3.3 mmol/L (3.5-5.1) Chloride Level 100 mmol/L (98-107) Carbon Dioxide Level 38 mmol/L (21-32) Anion Gap 8 (6-14) Blood Urea Nitrogen 146 mg/dL (8-26) Creatinine 2.9 mg/dL (0.7-1.3) Estimated GFR (Cockcroft-Gault) 21.7 BUN/Creatinine Ratio 50 (6-20) Glucose Level 146 mg/dL (70-99) Calcium Level 9.3 mg/dL (8.5-10.1) Magnesium Level 1.9 mg/dL (1.8-2.4) Total Bilirubin 0.6 mg/dL (0.2-1.0) Aspartate Amino Transf (AST/SGOT) 19 U/L (15-37) Alanine Aminotransferase (ALT/SGPT) 21 U/L (16-63) Alkaline Phosphatase 79 U/L (46-116) Total Protein 7.3 g/dL (6.4-8.2) Albumin 3.1 g/dL (3.4-5.0) Albumin/Globulin Ratio 0.7 (1.0-1.7) Test 03/01/19 11:27 Glucose (Fingerstick) 146 mg/dL (70-99) Medications Current Medications Allopurinol (Zyloprim) 100 mg DAILY PO Last administered on 03/01/19at 08:35; Start 03/01/19 at 09:00 Aspirin (Children'S Aspirin) 81 mg DAILY PO Last administered on 03/01/19at 08:34; Start 03/01/19 at 09:00 Carvedilol (Coreg) 3.125 mg BIDWMEALS PO Last administered on 03/01/19at 08:36; Start 02/28/19 at 18:00 Isosorbide Mononitrate (Imdur) 30 mg DAILY PO Last administered on 03/01/19 08:37; Start 03/01/19 at 09:00 Levetiracetam (Keppra) 500 mg BID PO Last administered on 03/01/19 08:32; Start 02/28/19 at 21:00; Stop 03/01/19 at 11:33; Status DC Potassium Chloride (Klor-Con) 10 meq DAILY08 PO Last administered on 03/01/19 08:34; Start 03/01/19 at 08:00 Warfarin Sodium (Coumadin - No Dose Today) 1 each DAILY MC ; Start 03/01/19 at 09:00; Status UNV Vitamin D (Vitamin D3) 1,000 unit DAILY PO Last administered on 03/01/19 08:29; Start 03/01/19 at 09:00 Glimepiride (Amaryl) 1 mg DAILY PO Last administered on 03/01/19 08:37; Start 03/01/19 at 09:00; Stop 03/01/19 at 11:33; Status DC Guaifenesin (MUCINEX ER with DM) 1 tab BID PO Last administered on 03/01/19 08:34; Start 02/28/19 at 21:00 Lisinopril (Prinivil) 5 mg BID PO Last administered on 03/01/19 08:38; Start 02/28/19 at 21:00 Loperamide HCl (Imodium) 2 mg DAILY PO ; Start 03/01/19 at 09:00; Stop 03/01/19 at 09:27; Status DC Multivitamins (Thera M Plus) 1 tab DAILY PO Last administered on 03/01/19at 08:33; Start 03/01/19 at 09:00 Torsemide (Demadex) 20 mg DAILY PO ; Start 03/01/19 at 09:00; Stop 03/01/19 at 10:50; Status DC Warfarin Sodium (Coumadin Per Pharmacy) 1 each PRN DAILY PRN MC SEE COMMENTS Last administered on 03/01/19at 12:24; Start 02/28/19 at 17:30 Warfarin Sodium (Coumadin) 2.5 mg DAILY16 PO Last administered on 02/28/19 17:55; Start 02/28/19 at 18:00 Loperamide HCl (Immodium Oral Susp) 1 mg DAILY PO Last administered on 03/01/19at 13:09; Start 03/01/19 at 09:45 Bumetanide (Bumex) 5 mg DAILY IV Last administered on 03/01/19at 13:08; Start 03/01/19 at 11:15 Potassium Chloride (Klor-Con) 20 meq 1X ONCE PO Last administered on 03/01/19at 13:08; Start 03/01/19 at 11:15; Stop 03/01/19 at 11:21; Status DC Insulin Glargine (Lantus) 4 units QHS SQ ; Start 03/01/19 at 21:00 Insulin Human Lispro (HumaLOG) 0-5 UNITS TIDWMEALHC SQ ; Start 03/01/19 at 12:00 Dextrose (Dextrose 50%-Water Syringe) 12.5 gm PRN Q15MIN PRN IV SEE COMMENTS; Start 03/01/19 at 11:30 Hydralazine HCl (Apresoline) 10 mg TID PO ; Start 03/01/19 at 14:00 Active Scripts Active Reported Glimepiride 1 Mg Tablet 1 Tab PO DAILY Vitamin D (Cholecalciferol (Vitamin D3)) 1,000 Unit Capsule 1 Cap PO DAILY Isosorbide Mononitrate Er (Isosorbide Mononitrate) 30 Mg Tab.er.24h 1 Tab PO DAILY Guaifenesin 1,200 Mg Tab.er.12h 1,200 Mg PO PRN 3-4XDAILY Potassium Chloride 10 Meq Tab.sr.24h 10 Meq PO DAILY Lisinopril 5 Mg Tablet 1 Tab PO BID Multivitamins (Multivitamin) 1 Each Tablet 1 Tab PO DAILY Aspirin 81 Mg Tab.chew 1 Tab PO DAILY Warfarin Sodium 2.5 Mg Tablet 2.5 Mg PO DAILY Loperamide (Loperamide Hcl) 2 Mg Capsule 1 Mg PO DAILY Levetiracetam 500 Mg Tablet 1 Tab PO BID Torsemide 20 Mg Tablet 5 Tab PO DAILY Carvedilol (Carvedilol) 3.125 Mg Tablet 3.125 Mg PO BIDWMEALS Allopurinol 100 Mg Tablet 1 Tab PO DAILY Vitals/I & O Vital Sign - Last 24 Hours 02/28/19 02/28/19 02/28/19 02/28/19 16:30 17:55 19:00 20:00 Temp 98.1 98.1 Pulse 90 93 Resp B/P (MAP) 111/59 88/58 (68) Pulse Ox 97 O2 Delivery Nasal Cannula Nasal Cannula Nasal Cannula O2 Flow Rate 2.0 2.0 2.0 02/28/19 03/01/19 03/01/19 03/01/19 23:46 03:11 07:00 08:34 Temp 98.0 97.8 98.0 98.0 97.8 98.0 Pulse 68 82 79 78 Resp 22 B/P (MAP) 104/65 (78) 119/53 (75) 103/53 (70) 117/64 (81) Pulse Ox 97 97 97 O2 Delivery Nasal Cannula Nasal Cannula Nasal Cannula O2 Flow Rate 2.0 2.0 2.0 03/01/19 03/01/19 03/01/19 03/01/19 08:36 08:37 08:38 10:46 Temp 97.6 97.6 Pulse 78 78 78 71 Resp B/P (MAP) 104/55 (71) Pulse Ox 95 O2 Delivery Nasal Cannula O2 Flow Rate 2.0 Intake and Output 02/28/19 02/28/19 03/01/19 15:00 23:00 07:00 Intake Total 200 ml Output Total 100 ml Balance 100 ml JA ARMANDO MD March 01, 2019 14:33
[2019-03-01] MEDS: WARFARIN 2.5 MG TABLET. PO SCH (17:48)
[2019-03-01] MEDS: INSULIN GLARGINE 300 UNITS/3 ML INSULN.PEN. SQ SCH (21:00)
[2019-03-02 03:45] VITALS: BP 110/64
[2019-03-02 07:00] VITALS: BP 111/47
[2019-03-02] MEDS: INSULIN LISPRO 300 UNITS/3 ML INSULN.PEN. SQ SCH ×4 (08:00→20:24)
[2019-03-02 08:10] LABS: PROTHROMBIN TIME PATIENT 26.1 SEC (11.7-14.0)
[2019-03-02 08:11] LABS: CALCIUM 8.9 mg/dL (8.5-10.1); CREATININE 2.8 mg/dL (0.7-1.3); GFR 22.6; PHOSPHORUS 4.3 mg/dL (2.6-4.7); POTASSIUM 3.1 mmol/L (3.5-5.1)
[2019-03-02] MEDS: BUMETANIDE 2.5 MG/10 ML VIAL. IV SCH (09:17)
[2019-03-02] MEDS: LOPERAMIDE 2 MG/15 ML ORAL SUSP. PO SCH (09:17)
[2019-03-02] MEDS: CHOLECALCIFEROL (VITAMIN D3) 1,000 UNIT TABLET PO SCH (09:18)
[2019-03-02] MEDS: ISOSORBIDE MONONITRATE ER 30 MG TAB.ER.24H PO SCH (09:18)
[2019-03-02] MEDS: MULTIVITAMIN with MINERAL TABLET. PO SCH (09:18)
[2019-03-02] MEDS: guaiFENesin DM 600/30MG 1 TAB TAB.ER.12H PO SCH ×2 (09:18→20:44)
[2019-03-02] MEDS: ALLOPURINOL 100 MG TABLET. PO SCH (09:19)
[2019-03-02] MEDS: POTASSIUM CHLORIDE 10 MEQ TABLET.ER. PO SCH (09:19)
[2019-03-02] MEDS: LISINOPRIL 5 MG TABLET. PO SCH ×2 (09:19→20:23)
[2019-03-02] MEDS: ASPIRIN CHEWABLE 81 MG TABLET. PO SCH (09:19)
[2019-03-02] MEDS: hydrALAZINE 10 MG TABLET PO SCH ×3 (09:20→20:23)
[2019-03-02] MEDS: CARVEDILOL 3.125 MG TABLET. PO SCH ×2 (09:20→17:57)
--- NOTE | 2019-03-02 10:57 | NUR ---
Pharmacy Warfarin Dosing Note S:Pharmacy consulted to assist with anticoagulation therapy started with target INR: 2 -3 O:MILLA HEALY is a 69 year old M with Atrial Fibrillation LABS: Last INR: 2.4 Last HGB: 11.4 Last HCT: 35.7 Last PLT: 136 Last dose of 2.5 mg given on 03/01/19 at 1748 Previous Regimen: 2.5mg daily Vitamin K given: N Drug Interaction Changes: Ongoing Drug Interactions: A:INR of 2.4 is within desired range. Target range for this patient is: 2 -3 P: Warfarin dose: 2.5 mg Today at 1600 Bridge Therapy: None Next INR due 03/03/19 Pharmacy anticoagulation service will continue to follow. JEAN MARIE STEINBERG RPH, 03/02/19 [id number]
[2019-03-02 11:00] VITALS: BP 103/52
--- NOTE | 2019-03-02 11:44 | PDOC ---
PROGRESS NOTES Chief Complaint Chief Complaint A/P: Acute on Chronic combined systolic and diastolic heart failure, EF 25% - on torsemide 100mg daily, previously. On statin, ASA, BB, on ADAN, will watch with CKD - on Imdur + hydralazine per EFT recommendations, not on spironolactone at this time, will d/w nephrology and cardiology as his CKD is a relative contraindication for this. 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 Nephrology consulted. May currently have cardiorenal syndrome, will lolis. Of note, he has made it clear he will never undergo dialysis DM2 - basal bolus plus regimen in house FEN - Cardiac diet PPX - Coumadin DNR/DNI Dispo - inpatient for acute CHF exacerbation with ELENA. Likely 2 midnights inpatient. History of Present Illness History of Present Illness Mr Flores is a 69 year old male with PMHx Morbid obesity, Chronic combined systolic and diastolic heart failure, EF 25%, Ellen, CAD, HTN, HLD, Sz (ruptured AVM, TBI), Gout, CKD IV, DM2. He apparently was initially diagnosed with heart failure in the 90 and has most recently been evaluated by [facility] after a recent move from [place] where he was followed in a heart failure clinic and with nephrology. He denies prior cardiac cath, but does note in [place], [place] in 2006 he presented with NSTEMI and was recommended to have cath at that time. [place] records indicate his prior refusal of cath as well. He denies any prior education or offer of ICD though records also indicate he has previously declined this as well, and he definitely refuses this with me. He reports chronic severe lymphedema which has been worsening over the last several months, and notes he has home Lymphapress and velcro compression stockings. He reports chronic orthopnea and sleeping in a chair for the last couple years. [facility] has previously recommended IV diuretics and inotropic infusion weekly He reports his last episode of chest pain was day prior to admit relieved with nitrates. He denies palpitations but is chronically in atrial fibrillation for which he is on Coumadin with a therapeutic INR. He feels worse today. C/o headache with photophobia, gluteal pain, calf pain. Diuresed reasonably well 1L after 5mg Bumex yesterday. K is 3.1 today. Plan: Replace K Tylenol and compazine for headache elevate legs, pillow beneath Waffle cushion for gluteal pain Vitals Vitals Vital Signs Date Time Temp Pulse Resp B/P (MAP) Pulse Ox O2 Delivery O2 Flow Rate FiO2 03/02/19 09:20 80 03/02/19 08:05 Nasal Cannula 2.0 03/02/19 07:00 97.4 16 111/47 (68) 98 97.4 Physical Exam General: Alert, Oriented X3, Cooperative, mild distress Heart: Regular rate, Normal S1, Normal S2, Other (irregularly irregular) Lungs: Clear Abdomen: Normal bowel sounds Extremities: No clubbing, No cyanosis Skin: No breakdown Labs LABS Laboratory Tests Test 03/01/19 16:34 03/01/19 21:33 03/02/19 07:00 03/02/19 08:12 Glucose (Fingerstick) 154 mg/dL (70-99) 135 mg/dL (70-99) 115 mg/dL (70-99) Prothrombin Time 26.1 SEC (11.7-14.0) Prothromb Time International Ratio 2.4 (0.8-1.1) Sodium Level 143 mmol/L (136-145) Potassium Level 3.1 mmol/L (3.5-5.1) Chloride Level 100 mmol/L (98-107) Carbon Dioxide Level 35 mmol/L (21-32) Anion Gap 8 (6-14) Blood Urea Nitrogen 144 mg/dL (8-26) Creatinine 2.8 mg/dL (0.7-1.3) Estimated GFR (Cockcroft-Gault) 22.6 Glucose Level 119 mg/dL (70-99) Calcium Level 8.9 mg/dL (8.5-10.1) Phosphorus Level 4.3 mg/dL (2.6-4.7) Albumin 3.0 g/dL (3.4-5.0) Comment Review of Relevant I have reviewed the following items angeline (where applicable) has been applied. Labs Laboratory Tests Test 02/28/19 17:01 02/28/19 21:00 03/01/19 04:00 03/01/19 07:20 Glucose (Fingerstick) 145 mg/dL (70-99) 178 mg/dL (70-99) 134 mg/dL (70-99) White Blood Count 7.1 x10^3/uL (4.0-11.0) Red Blood Count 4.01 x10^6/uL (4.30-5.70) Hemoglobin 11.4 g/dL (13.0-17.5) Hematocrit 35.7 % (39.0-53.0) Mean Corpuscular Volume 89 fL (79-100) Mean Corpuscular Hemoglobin 29 pg (25-35) Mean Corpuscular Hemoglobin Concent 32 g/dL (31-37) Red Cell Distribution Width 16.7 % (11.5-14.5) Platelet Count 136 x10^3/uL (140-400) Neutrophils (%) (Auto) 72 % (31-73) Lymphocytes (%) (Auto) 14 % (24-48) Monocytes (%) (Auto) 9 % (0-9) Eosinophils (%) (Auto) 4 % (0-3) Basophils (%) (Auto) 1 % (0-3) Neutrophils # (Auto) 5.1 x10^3uL (1.8-7.7) Lymphocytes # (Auto) 1.0 x10^3/uL (1.0-4.8) Monocytes # (Auto) 0.6 x10^3/uL (0.0-1.1) Eosinophils # (Auto) 0.3 x10^3/uL (0.0-0.7) Basophils # (Auto) 0.1 x10^3/uL (0.0-0.2) Prothrombin Time 24.9 SEC (11.7-14.0) Prothromb Time International Ratio 2.3 (0.8-1.1) Sodium Level 146 mmol/L (136-145) Potassium Level 3.3 mmol/L (3.5-5.1) Chloride Level 100 mmol/L (98-107) Carbon Dioxide Level 38 mmol/L (21-32) Anion Gap 8 (6-14) Blood Urea Nitrogen 146 mg/dL (8-26) Creatinine 2.9 mg/dL (0.7-1.3) Estimated GFR (Cockcroft-Gault) 21.7 BUN/Creatinine Ratio 50 (6-20) Glucose Level 146 mg/dL (70-99) Calcium Level 9.3 mg/dL (8.5-10.1) Magnesium Level 1.9 mg/dL (1.8-2.4) Total Bilirubin 0.6 mg/dL (0.2-1.0) Aspartate Amino Transf (AST/SGOT) 19 U/L (15-37) Alanine Aminotransferase (ALT/SGPT) 21 U/L (16-63) Alkaline Phosphatase 79 U/L (46-116) Total Protein 7.3 g/dL (6.4-8.2) Albumin 3.1 g/dL (3.4-5.0) Albumin/Globulin Ratio 0.7 (1.0-1.7) Test 03/01/19 11:27 03/01/19 16:34 03/01/19 21:33 03/02/19 07:00 Glucose (Fingerstick) 146 mg/dL (70-99) 154 mg/dL (70-99) 135 mg/dL (70-99) Prothrombin Time 26.1 SEC (11.7-14.0) Prothromb Time International Ratio 2.4 (0.8-1.1) Sodium Level 143 mmol/L (136-145) Potassium Level 3.1 mmol/L (3.5-5.1) Chloride Level 100 mmol/L (98-107) Carbon Dioxide Level 35 mmol/L (21-32) Anion Gap 8 (6-14) Blood Urea Nitrogen 144 mg/dL (8-26) Creatinine 2.8 mg/dL (0.7-1.3) Estimated GFR (Cockcroft-Gault) 22.6 Glucose Level 119 mg/dL (70-99) Calcium Level 8.9 mg/dL (8.5-10.1) Phosphorus Level 4.3 mg/dL (2.6-4.7) Albumin 3.0 g/dL (3.4-5.0) Test 03/02/19 08:12 Glucose (Fingerstick) 115 mg/dL (70-99) Laboratory Tests Test 03/01/19 16:34 03/01/19 21:33 03/02/19 07:00 03/02/19 08:12 Glucose (Fingerstick) 154 mg/dL (70-99) 135 mg/dL (70-99) 115 mg/dL (70-99) Prothrombin Time 26.1 SEC (11.7-14.0) Prothromb Time International Ratio 2.4 (0.8-1.1) Sodium Level 143 mmol/L (136-145) Potassium Level 3.1 mmol/L (3.5-5.1) Chloride Level 100 mmol/L (98-107) Carbon Dioxide Level 35 mmol/L (21-32) Anion Gap 8 (6-14) Blood Urea Nitrogen 144 mg/dL (8-26) Creatinine 2.8 mg/dL (0.7-1.3) Estimated GFR (Cockcroft-Gault) 22.6 Glucose Level 119 mg/dL (70-99) Calcium Level 8.9 mg/dL (8.5-10.1) Phosphorus Level 4.3 mg/dL (2.6-4.7) Albumin 3.0 g/dL (3.4-5.0) Medications Current Medications Allopurinol (Zyloprim) 100 mg DAILY PO Last administered on 03/02/19 09:19; Start 03/01/19 at 09:00 Aspirin (Children'S Aspirin) 81 mg DAILY PO Last administered on 03/02/19 09:19; Start 03/01/19 at 09:00 Carvedilol (Coreg) 3.125 mg BIDWMEALS PO Last administered on 03/02/19 09:20; Start 02/28/19 at 18:00 Isosorbide Mononitrate (Imdur) 30 mg DAILY PO Last administered on 03/02/19 09:18; Start 03/01/19 at 09:00 Levetiracetam (Keppra) 500 mg BID PO Last administered on 03/01/19 08:32; Start 02/28/19 at 21:00; Stop 03/01/19 at 11:33; Status DC Potassium Chloride (Klor-Con) 10 meq DAILY08 PO Last administered on 03/02/19 09:19; Start 03/01/19 at 08:00 Warfarin Sodium (Coumadin - No Dose Today) 1 each DAILY ; Start 03/01/19 at 09:00; Status UNV Vitamin D (Vitamin D3) 1,000 unit DAILY PO Last administered on 03/02/19 09:18; Start 03/01/19 at 09:00 Glimepiride (Amaryl) 1 mg DAILY PO Last administered on 03/01/19 08:37; Start 03/01/19 at 09:00; Stop 03/01/19 at 11:33; Status DC Guaifenesin (MUCINEX ER with DM) 1 tab BID PO Last administered on 03/02/19 09:18; Start 02/28/19 at 21:00 Lisinopril (Prinivil) 5 mg BID PO Last administered on 03/02/19 09:19; Start 02/28/19 at 21:00 Loperamide HCl (Imodium) 2 mg DAILY PO ; Start 03/01/19 at 09:00; Stop 03/01/19 at 09:27; Status DC Multivitamins (Thera M Plus) 1 tab DAILY PO Last administered on 03/02/19 09:18; Start 03/01/19 at 09:00 Torsemide (Demadex) 20 mg DAILY PO ; Start 03/01/19 at 09:00; Stop 03/01/19 at 10:50; Status DC Warfarin Sodium (Coumadin Per Pharmacy) 1 each PRN DAILY PRN MC SEE COMMENTS Last administered on 03/02/19 10:57; Start 02/28/19 at 17:30 Warfarin Sodium (Coumadin) 2.5 mg DAILY16 PO Last administered on 03/01/19 17:48; Start 02/28/19 at 18:00 Loperamide HCl (Immodium Oral Susp) 1 mg DAILY PO Last administered on 03/02/19 09:17; Start 03/01/19 at 09:45 Bumetanide (Bumex) 5 mg DAILY IV Last administered on 03/02/19 09:17; Start 03/01/19 at 11:15 Potassium Chloride (Klor-Con) 20 meq 1X ONCE PO Last administered on 03/01/19 13:08; Start 03/01/19 at 11:15; Stop 03/01/19 at 11:21; Status DC Insulin Glargine (Lantus) 4 units QHS SQ ; Start 03/01/19 at 21:00 Insulin Human Lispro (HumaLOG) 0-5 UNITS TIDWMEALHC SQ ; Start 03/01/19 at 12:00 Dextrose (Dextrose 50%-Water Syringe) 12.5 gm PRN Q15MIN PRN IV SEE COMMENTS; Start 03/01/19 at 11:30 Hydralazine HCl (Apresoline) 10 mg TID PO Last administered on 03/02/19at 09:20; Start 03/01/19 at 14:00 Acetaminophen (Tylenol) 650 mg PRN Q6HRS PRN PO pain; Start 03/02/19 at 11:45 Active Scripts Active Reported Glimepiride 1 Mg Tablet 1 Tab PO DAILY Vitamin D (Cholecalciferol (Vitamin D3)) 1,000 Unit Capsule 1 Cap PO DAILY Isosorbide Mononitrate Er (Isosorbide Mononitrate) 30 Mg Tab.er.24h 1 Tab PO DAILY Guaifenesin 1,200 Mg Tab.er.12h 1,200 Mg PO PRN 3-4XDAILY Potassium Chloride 10 Meq Tab.sr.24h 10 Meq PO DAILY Lisinopril 5 Mg Tablet 1 Tab PO BID Multivitamins (Multivitamin) 1 Each Tablet 1 Tab PO DAILY Aspirin 81 Mg Tab.chew 1 Tab PO DAILY Warfarin Sodium 2.5 Mg Tablet 2.5 Mg PO DAILY Loperamide (Loperamide Hcl) 2 Mg Capsule 1 Mg PO DAILY Levetiracetam 500 Mg Tablet 1 Tab PO BID Torsemide 20 Mg Tablet 5 Tab PO DAILY Carvedilol (Carvedilol) 3.125 Mg Tablet 3.125 Mg PO BIDWMEALS Allopurinol 100 Mg Tablet 1 Tab PO DAILY Vitals/I & O Vital Sign - Last 24 Hours 03/01/19 03/01/19 03/01/19 03/01/19 14:43 17:48 19:15 20:00 Temp 98.4 98.2 98.4 98.2 Pulse 72 88 85 Resp 22 20 B/P (MAP) 90/55 (67) 112/68 (83) Pulse Ox 95 96 O2 Delivery Nasal Cannula Nasal Cannula Room Air O2 Flow Rate 2.0 2.0 03/01/19 03/01/19 03/01/19 03/02/19 21:35 21:35 23:00 03:45 Temp 98.2 98.0 98.2 98.0 Pulse 85 85 75 74 Resp 21 22 B/P (MAP) 112/68 112/68 115/65 (82) 110/64 (79) Pulse Ox 91 95 O2 Delivery Room Air Nasal Cannula O2 Flow Rate 2.0 03/02/19 03/02/19 03/02/19 03/02/19 07:00 08:05 09:18 09:19 Temp 97.4 97.4 Pulse 69 78 82 Resp 16 B/P (MAP) 111/47 (68) Pulse Ox 98 O2 Delivery Nasal Cannula Nasal Cannula O2 Flow Rate 2.0 2.0 03/02/19 03/02/19 09:20 09:20 Pulse 81 80 Intake and Output 03/01/19 03/01/19 03/02/19 15:00 23:00 07:00 Intake Total 500 ml 240 ml Output Total 125 ml Balance -125 ml 500 ml 240 ml SINAN RIVERO MD March 02, 2019 11:44
[2019-03-02] MEDS ORDERED: POTASSIUM CHLORIDE 20 MEQ TABLET.ER. PO ONE (11:45)
[2019-03-02] MEDS: ACETAMINOPHEN 325 MG TABLET. PO PRN (11:53)
--- NOTE | 2019-03-02 12:09 | PDOC ---
Renal-Progress Notes Subjective Notes Notes NO NEW COMPLAINTS History of Present Illness Hx of present illness STABLE Vitals Vitals Vital Signs Date Time Temp Pulse Resp B/P (MAP) Pulse Ox O2 Delivery O2 Flow Rate FiO2 03/02/19 09:20 80 03/02/19 08:05 Nasal Cannula 2.0 03/02/19 07:00 97.4 16 111/47 (68) 98 97.4 Weight Weight [ ] I.O. Intake and Output Intake and Output 03/02/19 07:00 Intake Total 740 ml Output Total 125 ml Balance 615 ml Intake Oral 740 ml Output Urine Total 125 ml # Voids 9 Labs Labs Laboratory Tests Test 03/01/19 16:34 03/01/19 21:33 03/02/19 07:00 03/02/19 08:12 Glucose (Fingerstick) 154 mg/dL (70-99) 135 mg/dL (70-99) 115 mg/dL (70-99) Prothrombin Time 26.1 SEC (11.7-14.0) Prothromb Time International Ratio 2.4 (0.8-1.1) Sodium Level 143 mmol/L (136-145) Potassium Level 3.1 mmol/L (3.5-5.1) Chloride Level 100 mmol/L (98-107) Carbon Dioxide Level 35 mmol/L (21-32) Anion Gap 8 (6-14) Blood Urea Nitrogen 144 mg/dL (8-26) Creatinine 2.8 mg/dL (0.7-1.3) Estimated GFR (Cockcroft-Gault) 22.6 Glucose Level 119 mg/dL (70-99) Calcium Level 8.9 mg/dL (8.5-10.1) Phosphorus Level 4.3 mg/dL (2.6-4.7) Magnesium Level 1.9 mg/dL (1.8-2.4) Albumin 3.0 g/dL (3.4-5.0) Test 03/02/19 11:57 Glucose (Fingerstick) 197 mg/dL (70-99) Review of Systems Constitutional: yes: alert, oriented Ears/Nose/Throat: Yes: no symptom reported Eyes: Yes: no symptom reported Pulmonary: Yes dyspnea Cardiovascular: Yes no symptom reported Gastrointestional: Yes: no symptom reported Genitourinary: Yes: no symptom reported Skin: Yes no symptom reported Psychiatric/Neurological: Yes: no symptom reported Endocrine: Yes: no symptom reported Physical Exam General Appearance: no apparent distress Respiratory: decreased breath sounds Heart: S1S2 Abdomen: soft, bowel sounds present Genitourinary: bladder flat Extremities: pulses present Neurology: alert Assessment Assessment IMP ELENA WITH CR OF 2.9 AND BUN OF 146 CKD STAGE 4 TO NOW ESRD CHF - ACUTE SYSTOLIC AND DIASTOLIC AFIB HX-ANTICOAGULATION DM II HX HYPOKALEMIA PLAN DIURESE CONT ADAN-I REPLACE K LONG D/W PT AND HE HAD BEEN OFFERED DIALYSIS WHILE IN [place] AND HE REFUSED GIVEN HIS CKD 4 STATE AND CHF AND DIFFICULTY WITH DIURESIS HE IS AT ESRD PT STATES HE DOES NOT WANT DIALYSIS WILL HAVE PALLIATIVE CARE TEAM SPEAK WITH PT BOTH PT AND WOULD LIKE SPEAK WITH PALLIATIVE CARE TEAM MALLORIE HOLT MD March 02, 2019 12:09
[2019-03-02] MEDS ORDERED: PROCHLORPERAZINE 10 MG/2 ML VIAL. IV ONE (12:15)
[2019-03-02 15:00] VITALS: BP 99/54
[2019-03-02] MEDS: WARFARIN 2.5 MG TABLET. PO SCH (17:56)
[2019-03-02 19:00] VITALS: BP 83/38
[2019-03-02] MEDS: INSULIN GLARGINE 300 UNITS/3 ML INSULN.PEN. SQ SCH (20:24)
[2019-03-02] MEDS ORDERED: HYDROcodone/APAP 5/325MG 1 TAB TABLET PO PRN (20:45)
[2019-03-02] MEDS ORDERED: traZODone 100 MG TABLET. PO PRN (20:45)
[2019-03-02] MEDS ORDERED: MIRTAZAPINE 15 MG TAB.RAPDIS PO SCH (21:00)
[2019-03-02 22:51] VITALS: BP 109/64
[2019-03-03 02:47] VITALS: BP 126/68
[2019-03-03 05:45] LABS: PROTHROMBIN TIME PATIENT 27.2 SEC (11.7-14.0)
[2019-03-03 05:49] LABS: CALCIUM 8.8 mg/dL (8.5-10.1); GFR 20.9; MAGNESIUM 2.1 mg/dL (1.8-2.4); PHOSPHORUS 4.5 mg/dL (2.6-4.7); POTASSIUM 3.8 mmol/L (3.5-5.1)
[2019-03-03 07:00] VITALS: BP 92/51
[2019-03-03] MEDS: INSULIN LISPRO 300 UNITS/3 ML INSULN.PEN. SQ SCH ×4 (08:00→21:01)
[2019-03-03] MEDS: hydrALAZINE 10 MG TABLET PO SCH ×3 (09:00→21:01)
[2019-03-03] MEDS: LOPERAMIDE 2 MG/15 ML ORAL SUSP. PO SCH (09:00)
[2019-03-03] MEDS: BUMETANIDE 2.5 MG/10 ML VIAL. IV SCH (09:00)
[2019-03-03] MEDS: MULTIVITAMIN with MINERAL TABLET. PO SCH (09:04)
[2019-03-03] MEDS: CHOLECALCIFEROL (VITAMIN D3) 1,000 UNIT TABLET PO SCH (09:04)
[2019-03-03] MEDS: ALLOPURINOL 100 MG TABLET. PO SCH (09:04)
[2019-03-03] MEDS: ISOSORBIDE MONONITRATE ER 30 MG TAB.ER.24H PO SCH (09:07)
[2019-03-03] MEDS: guaiFENesin DM 600/30MG 1 TAB TAB.ER.12H PO SCH ×2 (09:07→21:00)
[2019-03-03] MEDS: CARVEDILOL 3.125 MG TABLET. PO SCH ×2 (09:07→16:36)
[2019-03-03] MEDS: ASPIRIN CHEWABLE 81 MG TABLET. PO SCH (09:07)
[2019-03-03] MEDS: POTASSIUM CHLORIDE 10 MEQ TABLET.ER. PO SCH (09:08)
[2019-03-03] MEDS: LISINOPRIL 5 MG TABLET. PO SCH ×2 (09:12→21:01)
--- NOTE | 2019-03-03 10:15 | PDOC ---
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 Patient states feeling depressed because he believes he cannot be helped, denied treatment for depression He was told he may need dialysis to which he denies wanting to pursue Patients current biggest complaint is his lymphedema He states he has memory problems due to his ruptured AVM Vitals Vitals Vital Signs Date Time Temp Pulse Resp B/P (MAP) Pulse Ox O2 Delivery O2 Flow Rate FiO2 03/03/19 09:12 82 92/51 03/03/19 08:00 Room Air 03/03/19 07:00 98.0 18 94 2.0 98.0 Physical Exam General: Alert, Oriented X3, Cooperative, mild distress Heart: Regular rate, Normal S1, Normal S2, Other (irregularly irregular) Lungs: Clear Abdomen: Normal bowel sounds Extremities: No clubbing, No cyanosis Skin: No breakdown Labs LABS Laboratory Tests Test 03/02/19 11:57 03/02/19 17:14 03/02/19 20:46 03/03/19 04:15 Glucose (Fingerstick) 197 mg/dL (70-99) 108 mg/dL (70-99) 199 mg/dL (70-99) Prothrombin Time 27.2 SEC (11.7-14.0) Prothromb Time International Ratio 2.5 (0.8-1.1) Sodium Level 139 mmol/L (136-145) Potassium Level 3.8 mmol/L (3.5-5.1) Chloride Level 98 mmol/L (98-107) Carbon Dioxide Level 35 mmol/L (21-32) Anion Gap 6 (6-14) Blood Urea Nitrogen 149 mg/dL (8-26) Creatinine 3.0 mg/dL (0.7-1.3) Estimated GFR (Cockcroft-Gault) 20.9 Glucose Level 146 mg/dL (70-99) Calcium Level 8.8 mg/dL (8.5-10.1) Phosphorus Level 4.5 mg/dL (2.6-4.7) Magnesium Level 2.1 mg/dL (1.8-2.4) Albumin 3.0 g/dL (3.4-5.0) Test 03/03/19 07:09 Glucose (Fingerstick) 129 mg/dL (70-99) Review of Systems Review of Systems Patient denies abdominal pain Patient denies N/V Assessment and Plan Assessmemt and Plan Assessment: A/P: Acute on Chronic combined systolic and diastolic heart failure, EF 25% AFIB CAD- presumptive HTN HLD 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 Labs Laboratory Tests Test 03/01/19 11:27 03/01/19 16:34 03/01/19 21:33 03/02/19 07:00 Glucose (Fingerstick) 146 mg/dL (70-99) 154 mg/dL (70-99) 135 mg/dL (70-99) Prothrombin Time 26.1 SEC (11.7-14.0) Prothromb Time International Ratio 2.4 (0.8-1.1) Sodium Level 143 mmol/L (136-145) Potassium Level 3.1 mmol/L (3.5-5.1) Chloride Level 100 mmol/L (98-107) Carbon Dioxide Level 35 mmol/L (21-32) Anion Gap 8 (6-14) Blood Urea Nitrogen 144 mg/dL (8-26) Creatinine 2.8 mg/dL (0.7-1.3) Estimated GFR (Cockcroft-Gault) 22.6 Glucose Level 119 mg/dL (70-99) Calcium Level 8.9 mg/dL (8.5-10.1) Phosphorus Level 4.3 mg/dL (2.6-4.7) Magnesium Level 1.9 mg/dL (1.8-2.4) Albumin 3.0 g/dL (3.4-5.0) Test 03/02/19 08:12 03/02/19 11:57 03/02/19 17:14 03/02/19 20:46 Glucose (Fingerstick) 115 mg/dL (70-99) 197 mg/dL (70-99) 108 mg/dL (70-99) 199 mg/dL (70-99) Test 03/03/19 04:15 03/03/19 07:09 Prothrombin Time 27.2 SEC (11.7-14.0) Prothromb Time International Ratio 2.5 (0.8-1.1) Sodium Level 139 mmol/L (136-145) Potassium Level 3.8 mmol/L (3.5-5.1) Chloride Level 98 mmol/L (98-107) Carbon Dioxide Level 35 mmol/L (21-32) Anion Gap 6 (6-14) Blood Urea Nitrogen 149 mg/dL (8-26) Creatinine 3.0 mg/dL (0.7-1.3) Estimated GFR (Cockcroft-Gault) 20.9 Glucose Level 146 mg/dL (70-99) Calcium Level 8.8 mg/dL (8.5-10.1) Phosphorus Level 4.5 mg/dL (2.6-4.7) Magnesium Level 2.1 mg/dL (1.8-2.4) Albumin 3.0 g/dL (3.4-5.0) Glucose (Fingerstick) 129 mg/dL (70-99) Laboratory Tests Test 03/02/19 11:57 03/02/19 17:14 03/02/19 20:46 03/03/19 04:15 Glucose (Fingerstick) 197 mg/dL (70-99) 108 mg/dL (70-99) 199 mg/dL (70-99) Prothrombin Time 27.2 SEC (11.7-14.0) Prothromb Time International Ratio 2.5 (0.8-1.1) Sodium Level 139 mmol/L (136-145) Potassium Level 3.8 mmol/L (3.5-5.1) Chloride Level 98 mmol/L (98-107) Carbon Dioxide Level 35 mmol/L (21-32) Anion Gap 6 (6-14) Blood Urea Nitrogen 149 mg/dL (8-26) Creatinine 3.0 mg/dL (0.7-1.3) Estimated GFR (Cockcroft-Gault) 20.9 Glucose Level 146 mg/dL (70-99) Calcium Level 8.8 mg/dL (8.5-10.1) Phosphorus Level 4.5 mg/dL (2.6-4.7) Magnesium Level 2.1 mg/dL (1.8-2.4) Albumin 3.0 g/dL (3.4-5.0) Test 03/03/19 07:09 Glucose (Fingerstick) 129 mg/dL (70-99) Medications Current Medications Allopurinol (Zyloprim) 100 mg DAILY PO Last administered on 03/03/19 09:04; Start 03/01/19 at 09:00 Aspirin (Children'S Aspirin) 81 mg DAILY PO Last administered on 03/03/19at 09:07; Start 03/01/19 at 09:00 Carvedilol (Coreg) 3.125 mg BIDWMEALS PO Last administered on 03/03/19 09:07; Start 02/28/19 at 18:00 Isosorbide Mononitrate (Imdur) 30 mg DAILY PO Last administered on 03/03/19at 09:07; Start 03/01/19 at 09:00 Levetiracetam (Keppra) 500 mg BID PO Last administered on 03/01/19at 08:32; Start 02/28/19 at 21:00; Stop 03/01/19 at 11:33; Status DC Potassium Chloride (Klor-Con) 10 meq DAILY08 PO Last administered on 03/03/19at 09:08; Start 03/01/19 at 08:00 Warfarin Sodium (Coumadin - No Dose Today) 1 each DAILY MC ; Start 03/01/19 at 09:00; Status UNV Vitamin D (Vitamin D3) 1,000 unit DAILY PO Last administered on 03/03/19at 09:04; Start 03/01/19 at 09:00 Glimepiride (Amaryl) 1 mg DAILY PO Last administered on 03/01/19at 08:37; Start 03/01/19 at 09:00; Stop 03/01/19 at 11:33; Status DC Guaifenesin (MUCINEX ER with DM) 1 tab BID PO Last administered on 03/03/19 09:07; Start 02/28/19 at 21:00 Lisinopril (Prinivil) 5 mg BID PO Last administered on 03/03/19at 09:12; Start 02/28/19 at 21:00 Loperamide HCl (Imodium) 2 mg DAILY PO ; Start 03/01/19 at 09:00; Stop 03/01/19 at 09:27; Status DC Multivitamins (Thera M Plus) 1 tab DAILY PO Last administered on 03/03/19 09:04; Start 03/01/19 at 09:00 Torsemide (Demadex) 20 mg DAILY PO ; Start 03/01/19 at 09:00; Stop 03/01/19 at 10:50; Status DC Warfarin Sodium (Coumadin Per Pharmacy) 1 each PRN DAILY PRN MC SEE COMMENTS Last administered on 03/02/19 10:57; Start 02/28/19 at 17:30 Warfarin Sodium (Coumadin) 2.5 mg DAILY16 PO Last administered on 03/02/19 17:56; Start 02/28/19 at 18:00 Loperamide HCl (Immodium Oral Susp) 1 mg DAILY PO Last administered on 03/02/19 09:17; Start 03/01/19 at 09:45 Bumetanide (Bumex) 5 mg DAILY IV Last administered on 03/02/19 09:17; Start 03/01/19 at 11:15 Potassium Chloride (Klor-Con) 20 meq 1X ONCE PO Last administered on 03/01/19 13:08; Start 03/01/19 at 11:15; Stop 03/01/19 at 11:21; Status DC Insulin Glargine (Lantus) 4 units QHS SQ ; Start 03/01/19 at 21:00 Insulin Human Lispro (HumaLOG) 0-5 UNITS TIDWMEALHC SQ ; Start 03/01/19 at 12:00 Dextrose (Dextrose 50%-Water Syringe) 12.5 gm PRN Q15MIN PRN IV SEE COMMENTS; Start 03/01/19 at 11:30 Hydralazine HCl (Apresoline) 10 mg TID PO Last administered on 03/02/19 13:10; Start 03/01/19 at 14:00 Acetaminophen (Tylenol) 650 mg PRN Q6HRS PRN PO pain Last administered on 03/02/19 11:53; Start 03/02/19 at 11:45 Potassium Chloride (Klor-Con) 40 meq 1X ONCE PO Last administered on 03/02/19 11:53; Start 03/02/19 at 11:45; Stop 03/02/19 at 11:46; Status DC Prochlorperazine Edisylate (Compazine) 5 mg 1X ONCE IV Last administered on 03/02/19at 13:11; Start 03/02/19 at 12:15; Stop 03/02/19 at 12:16; Status DC Acetaminophen/ Hydrocodone Bitart (Lortab 5/325) 1 tab PRN Q4HRS PRN PO PAIN MODERATE; Start 03/02/19 at 20:45 Trazodone HCl (Desyrel) 100 mg PRN QHS PRN PO INSOMNIA; Start 03/02/19 at 20:45; Stop 03/02/19 at 20:45; Status DC Mirtazapine (Remeron Trish-Tab) 15 mg QHS PO ; Start 03/02/19 at 21:00; Stop 03/02/19 at 21:00; Status DC Active Scripts Active Reported Glimepiride 1 Mg Tablet 1 Tab PO DAILY Vitamin D (Cholecalciferol (Vitamin D3)) 1,000 Unit Capsule 1 Cap PO DAILY Isosorbide Mononitrate Er (Isosorbide Mononitrate) 30 Mg Tab.er.24h 1 Tab PO DAILY Guaifenesin 1,200 Mg Tab.er.12h 1,200 Mg PO PRN 3-4XDAILY Potassium Chloride 10 Meq Tab.sr.24h 10 Meq PO DAILY Lisinopril 5 Mg Tablet 1 Tab PO BID Multivitamins (Multivitamin) 1 Each Tablet 1 Tab PO DAILY Aspirin 81 Mg Tab.chew 1 Tab PO DAILY Warfarin Sodium 2.5 Mg Tablet 2.5 Mg PO DAILY Loperamide (Loperamide Hcl) 2 Mg Capsule 1 Mg PO DAILY Levetiracetam 500 Mg Tablet 1 Tab PO BID Torsemide 20 Mg Tablet 5 Tab PO DAILY Carvedilol (Carvedilol) 3.125 Mg Tablet 3.125 Mg PO BIDWMEALS Allopurinol 100 Mg Tablet 1 Tab PO DAILY Vitals/I & O Vital Sign - Last 24 Hours 03/02/19 03/02/19 03/02/19 03/02/19 11:00 13:10 15:00 17:57 Temp 97.6 97.6 97.6 97.6 Pulse 47 90 85 92 Resp 16 16 B/P (MAP) 103/52 (69) 99/54 (69) Pulse Ox 97 95 O2 Delivery Nasal Cannula Nasal Cannula O2 Flow Rate 2.0 2.0 03/02/19 03/02/19 03/02/19 03/02/19 19:00 20:00 20:23 20:23 Temp 98.1 98.1 Pulse 76 92 92 Resp 16 B/P (MAP) 83/38 (53) 99/54 99/54 Pulse Ox 91 O2 Delivery Nasal Cannula Room Air O2 Flow Rate 2.0 03/02/19 03/03/19 03/03/19 03/03/19 22:51 02:47 07:00 08:00 Temp 98.2 98.0 98.0 98.2 98.0 98.0 Pulse 77 89 82 Resp 18 19 18 B/P (MAP) 109/64 (79) 126/68 (87) 92/51 (65) Pulse Ox 94 94 94 O2 Delivery Nasal Cannula Nasal Cannula Nasal Cannula Room Air O2 Flow Rate 2.0 2.0 2.0 03/03/19 03/03/19 03/03/19 03/03/19 09:00 09:07 09:07 09:12 Pulse 82 82 82 82 B/P (MAP) 92/51 92/51 92/51 92/51 Intake and Output 03/02/19 03/02/19 03/03/19 15:00 23:00 07:00 Intake Total 473 ml Output Total 900 ml Balance -427 ml LACEY BAEZ III DO March 03, 2019 10:15
--- NOTE | 2019-03-03 10:55 | PDOC ---
Renal-Progress Notes Subjective Notes Notes NO NEW COMPLAINTS History of Present Illness Hx of present illness STABLE Vitals Vitals Vital Signs Date Time Temp Pulse Resp B/P (MAP) Pulse Ox O2 Delivery O2 Flow Rate FiO2 03/03/19 09:12 82 92/51 03/03/19 08:00 Room Air 03/03/19 07:00 98.0 18 94 2.0 98.0 Weight Weight [ ] I.O. Intake and Output Intake and Output 03/03/19 06:59 Intake Total 473 ml Output Total 900 ml Balance -427 ml Intake Oral 473 ml Output Urine Total 900 ml # Voids 6 # Bowel Movements 1 Labs Labs Laboratory Tests Test 03/02/19 11:57 03/02/19 17:14 03/02/19 20:46 03/03/19 04:15 Glucose (Fingerstick) 197 mg/dL (70-99) 108 mg/dL (70-99) 199 mg/dL (70-99) Prothrombin Time 27.2 SEC (11.7-14.0) Prothromb Time International Ratio 2.5 (0.8-1.1) Sodium Level 139 mmol/L (136-145) Potassium Level 3.8 mmol/L (3.5-5.1) Chloride Level 98 mmol/L (98-107) Carbon Dioxide Level 35 mmol/L (21-32) Anion Gap 6 (6-14) Blood Urea Nitrogen 149 mg/dL (8-26) Creatinine 3.0 mg/dL (0.7-1.3) Estimated GFR (Cockcroft-Gault) 20.9 Glucose Level 146 mg/dL (70-99) Calcium Level 8.8 mg/dL (8.5-10.1) Phosphorus Level 4.5 mg/dL (2.6-4.7) Magnesium Level 2.1 mg/dL (1.8-2.4) Albumin 3.0 g/dL (3.4-5.0) Test 03/03/19 07:09 Glucose (Fingerstick) 129 mg/dL (70-99) Review of Systems Constitutional: yes: alert, oriented Ears/Nose/Throat: Yes: no symptom reported Eyes: Yes: no symptom reported Pulmonary: Yes dyspnea Cardiovascular: Yes no symptom reported Gastrointestional: Yes: no symptom reported Genitourinary: Yes: no symptom reported Skin: Yes no symptom reported Psychiatric/Neurological: Yes: no symptom reported Endocrine: Yes: no symptom reported Physical Exam General Appearance: no apparent distress Respiratory: decreased breath sounds Heart: S1S2 Abdomen: soft, bowel sounds present Genitourinary: bladder flat Extremities: pulses present Neurology: alert Assessment Assessment IMP ELENA WITH CR OF 3.0 AND HIGH BUN CKD STAGE 4 TO NOW ESRD CHF - ACUTE SYSTOLIC AND DIASTOLIC AFIB HX-ANTICOAGULATION DM II HX HYPOKALEMIA PLAN BUMEX HELD CONT ADAN-I REPLACE K LONG D/W PT AND HE HAD BEEN OFFERED DIALYSIS WHILE IN [place] AND HE REFUSED GIVEN HIS CKD 4 STATE AND CHF AND DIFFICULTY WITH DIURESIS HE IS AT ESRD PT STATES HE DOES NOT WANT DIALYSIS WILL HAVE PALLIATIVE CARE TEAM SPEAK WITH PT BOTH PT AND WOULD LIKE SPEAK WITH PALLIATIVE CARE TEAM MALLORIE HOLT MD March 03, 2019 10:54
[2019-03-03 11:19] VITALS: BP 108/61
--- NOTE | 2019-03-03 12:39 | NUR ---
Ss following for discharge planning. SS reviewed pt chart. Pt is from home with spouse and is currently requiring oxygen. Palliative Care consulted. SS will continue to follow for discharge planning.
--- NOTE | 2019-03-03 13:22 | PDOC2 ---
PALLIATIVE CARE Palliative Care Note Palliative Care Consult requested by Dr. Medina to address goals of care. Medical Assessment per medical record; Acute on Chronic combined systolic and diastolic heart failure, EF 25% - s CKD is a relative contraindication for this. 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 Patient has AD. Moved here from [place] recently to help family. Daughter and family live at [place]. Patient living in [facility] prior to this admission. Reviewed above medical condition. Patient is adamant about NO Dialysis. Understands combination of Heart Disease and Renal Failure. Discussed options for care. Patient requests comfort care. Hospice would provide support. Discussed options for discharge. Daughter lives at [place]. Currently going home with daughter is not an options. (will not allow in housing) vs Prison with Hospice: would require out of pocket expense for room and board. vs Rent an apartment with Hospice support. Patient and request physician input regarding prognosis. DME: if discharged to apartment in [place]. Hospital Bed, oxygen, BSC Confirmed DNR/DNI; Outside the Hospital form signed by patient. will need physician signature. Spoke with Carole ARELLANO; will assist with discharge plan and selection of Hospice Agency covering [place]. DOUG MATTA March 03, 2019 13:22
[2019-03-03 15:20] VITALS: BP 110/45
[2019-03-03] MEDS: ACETAMINOPHEN 325 MG TABLET. PO PRN ×2 (15:29→21:00)
[2019-03-03] MEDS: WARFARIN 2.5 MG TABLET. PO SCH (16:36)
[2019-03-03 19:30] VITALS: BP 83/44
[2019-03-03] MEDS: INSULIN GLARGINE 300 UNITS/3 ML INSULN.PEN. SQ SCH (21:01)
[2019-03-03 23:12] VITALS: BP 85/52
[2019-03-04 03:00] VITALS: BP 148/44
[2019-03-04 04:15] LABS: BASO # 0.1 x10^3/uL (0.0-0.2); BASO % 1 % (0-3); EOS # 0.2 x10^3/uL (0.0-0.7); EOS % 3 % (0-3); HEMATOCRIT 33.4 % (39.0-53.0); HEMOGLOBIN 10.8 g/dL (13.0-17.5); LYMPH # 0.9 x10^3/uL (1.0-4.8); LYMPH % 13 % (24-48); MEAN CORPUSCULAR HEMOGLOBIN 29 pg (25-35); MEAN CORPUSCULAR HGB CONC 32 g/dL (31-37); MEAN CORPUSCULAR VOLUME 89 fL (79-100); MONO # 0.9 x10^3/uL (0.0-1.1); MONO % 13 % (0-9); NEUT # 4.9 x10^3uL (1.8-7.7); NEUT % 70 % (31-73); PLATELET COUNT 129 x10^3/uL (140-400); RED BLOOD COUNT 3.75 x10^6/uL (4.30-5.70); RED CELL DISTRIBUTION WIDTH 16.5 % (11.5-14.5); WHITE BLOOD COUNT 7.1 x10^3/uL (4.0-11.0)
[2019-03-04 04:24] LABS: PROTHROMBIN TIME PATIENT 28.8 SEC (11.7-14.0)
[2019-03-04 04:32] LABS: CALCIUM 8.9 mg/dL (8.5-10.1); CREATININE 3.2 mg/dL (0.7-1.3); GFR 19.4; PHOSPHORUS 4.5 mg/dL (2.6-4.7); POTASSIUM 4.1 mmol/L (3.5-5.1)
[2019-03-04 07:00] VITALS: BP 124/68
[2019-03-04] MEDS: POTASSIUM CHLORIDE 10 MEQ TABLET.ER. PO SCH (08:00)
[2019-03-04] MEDS: INSULIN LISPRO 300 UNITS/3 ML INSULN.PEN. SQ SCH ×4 (08:00→20:48)
[2019-03-04] MEDS: ALLOPURINOL 100 MG TABLET. PO SCH (08:43)
[2019-03-04] MEDS: LISINOPRIL 5 MG TABLET. PO SCH ×2 (08:43→20:47)
[2019-03-04] MEDS: CHOLECALCIFEROL (VITAMIN D3) 1,000 UNIT TABLET PO SCH (08:43)
[2019-03-04] MEDS: MULTIVITAMIN with MINERAL TABLET. PO SCH (08:43)
[2019-03-04] MEDS: guaiFENesin DM 600/30MG 1 TAB TAB.ER.12H PO SCH ×2 (08:43→20:46)
[2019-03-04] MEDS: ISOSORBIDE MONONITRATE ER 30 MG TAB.ER.24H PO SCH (08:44)
[2019-03-04] MEDS: ASPIRIN CHEWABLE 81 MG TABLET. PO SCH (08:44)
[2019-03-04] MEDS: CARVEDILOL 3.125 MG TABLET. PO SCH ×2 (08:44→16:22)
[2019-03-04] MEDS: BUMETANIDE 2.5 MG/10 ML VIAL. IV SCH (09:00)
[2019-03-04] MEDS: LOPERAMIDE 2 MG/15 ML ORAL SUSP. PO SCH ×2 (09:00→20:48)
[2019-03-04] MEDS: hydrALAZINE 10 MG TABLET PO SCH ×3 (09:00→20:47)
--- NOTE | 2019-03-04 09:57 | PDOC ---
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 Patient states he feels his lungs are doing better today Wants to pursue hospice Creatine not worsening, Denies dialysis Glucose uncontrolled, Denies Insulin Vitals Vitals Vital Signs Date Time Temp Pulse Resp B/P (MAP) Pulse Ox O2 Delivery O2 Flow Rate FiO2 03/04/19 08:44 82 124/68 03/04/19 08:00 Nasal Cannula 2.0 03/04/19 07:00 97.9 20 98 97.9 Physical Exam General: Alert, Oriented X3, Cooperative, mild distress Heart: Regular rate, Normal S1, Normal S2, Other (irregularly irregular) Lungs: Clear Abdomen: Normal bowel sounds Extremities: No clubbing, No cyanosis Skin: No breakdown Labs LABS Laboratory Tests Test 03/03/19 11:11 03/03/19 16:39 03/03/19 20:36 03/04/19 03:40 Glucose (Fingerstick) 203 mg/dL (70-99) 153 mg/dL (70-99) 272 mg/dL (70-99) White Blood Count 7.1 x10^3/uL (4.0-11.0) Red Blood Count 3.75 x10^6/uL (4.30-5.70) Hemoglobin 10.8 g/dL (13.0-17.5) Hematocrit 33.4 % (39.0-53.0) Mean Corpuscular Volume 89 fL (79-100) Mean Corpuscular Hemoglobin 29 pg (25-35) Mean Corpuscular Hemoglobin Concent 32 g/dL (31-37) Red Cell Distribution Width 16.5 % (11.5-14.5) Platelet Count 129 x10^3/uL (140-400) Neutrophils (%) (Auto) 70 % (31-73) Lymphocytes (%) (Auto) 13 % (24-48) Monocytes (%) (Auto) 13 % (0-9) Eosinophils (%) (Auto) 3 % (0-3) Basophils (%) (Auto) 1 % (0-3) Neutrophils # (Auto) 4.9 x10^3uL (1.8-7.7) Lymphocytes # (Auto) 0.9 x10^3/uL (1.0-4.8) Monocytes # (Auto) 0.9 x10^3/uL (0.0-1.1) Eosinophils # (Auto) 0.2 x10^3/uL (0.0-0.7) Basophils # (Auto) 0.1 x10^3/uL (0.0-0.2) Prothrombin Time 28.8 SEC (11.7-14.0) Prothromb Time International Ratio 2.7 (0.8-1.1) Sodium Level 141 mmol/L (136-145) Potassium Level 4.1 mmol/L (3.5-5.1) Chloride Level 100 mmol/L (98-107) Carbon Dioxide Level 33 mmol/L (21-32) Anion Gap 8 (6-14) Blood Urea Nitrogen 150 mg/dL (8-26) Creatinine 3.2 mg/dL (0.7-1.3) Estimated GFR (Cockcroft-Gault) 19.4 Glucose Level 171 mg/dL (70-99) Calcium Level 8.9 mg/dL (8.5-10.1) Phosphorus Level 4.5 mg/dL (2.6-4.7) Albumin 3.0 g/dL (3.4-5.0) Test 03/04/19 07:45 Glucose (Fingerstick) 142 mg/dL (70-99) Review of Systems Review of Systems Denies N/V Admits to depressive thoughts Assessment and Plan Assessmemt and Plan Assessment: A/P: Acute on Chronic combined systolic and diastolic heart failure, EF 25% ELENA on CKD AFIB CAD- presumptive HTN HLD 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 Labs Laboratory Tests Test 03/02/19 11:57 03/02/19 17:14 03/02/19 20:46 03/03/19 04:15 Glucose (Fingerstick) 197 mg/dL (70-99) 108 mg/dL (70-99) 199 mg/dL (70-99) Prothrombin Time 27.2 SEC (11.7-14.0) Prothromb Time International Ratio 2.5 (0.8-1.1) Sodium Level 139 mmol/L (136-145) Potassium Level 3.8 mmol/L (3.5-5.1) Chloride Level 98 mmol/L (98-107) Carbon Dioxide Level 35 mmol/L (21-32) Anion Gap 6 (6-14) Blood Urea Nitrogen 149 mg/dL (8-26) Creatinine 3.0 mg/dL (0.7-1.3) Estimated GFR (Cockcroft-Gault) 20.9 Glucose Level 146 mg/dL (70-99) Calcium Level 8.8 mg/dL (8.5-10.1) Phosphorus Level 4.5 mg/dL (2.6-4.7) Magnesium Level 2.1 mg/dL (1.8-2.4) Albumin 3.0 g/dL (3.4-5.0) Test 03/03/19 07:09 03/03/19 11:11 03/03/19 16:39 03/03/19 20:36 Glucose (Fingerstick) 129 mg/dL (70-99) 203 mg/dL (70-99) 153 mg/dL (70-99) 272 mg/dL (70-99) Test 03/04/19 03:40 03/04/19 07:45 White Blood Count 7.1 x10^3/uL (4.0-11.0) Red Blood Count 3.75 x10^6/uL (4.30-5.70) Hemoglobin 10.8 g/dL (13.0-17.5) Hematocrit 33.4 % (39.0-53.0) Mean Corpuscular Volume 89 fL (79-100) Mean Corpuscular Hemoglobin 29 pg (25-35) Mean Corpuscular Hemoglobin Concent 32 g/dL (31-37) Red Cell Distribution Width 16.5 % (11.5-14.5) Platelet Count 129 x10^3/uL (140-400) Neutrophils (%) (Auto) 70 % (31-73) Lymphocytes (%) (Auto) 13 % (24-48) Monocytes (%) (Auto) 13 % (0-9) Eosinophils (%) (Auto) 3 % (0-3) Basophils (%) (Auto) 1 % (0-3) Neutrophils # (Auto) 4.9 x10^3uL (1.8-7.7) Lymphocytes # (Auto) 0.9 x10^3/uL (1.0-4.8) Monocytes # (Auto) 0.9 x10^3/uL (0.0-1.1) Eosinophils # (Auto) 0.2 x10^3/uL (0.0-0.7) Basophils # (Auto) 0.1 x10^3/uL (0.0-0.2) Prothrombin Time 28.8 SEC (11.7-14.0) Prothromb Time International Ratio 2.7 (0.8-1.1) Sodium Level 141 mmol/L (136-145) Potassium Level 4.1 mmol/L (3.5-5.1) Chloride Level 100 mmol/L (98-107) Carbon Dioxide Level 33 mmol/L (21-32) Anion Gap 8 (6-14) Blood Urea Nitrogen 150 mg/dL (8-26) Creatinine 3.2 mg/dL (0.7-1.3) Estimated GFR (Cockcroft-Gault) 19.4 Glucose Level 171 mg/dL (70-99) Calcium Level 8.9 mg/dL (8.5-10.1) Phosphorus Level 4.5 mg/dL (2.6-4.7) Albumin 3.0 g/dL (3.4-5.0) Glucose (Fingerstick) 142 mg/dL (70-99) Laboratory Tests Test 03/03/19 11:11 03/03/19 16:39 03/03/19 20:36 03/04/19 03:40 Glucose (Fingerstick) 203 mg/dL (70-99) 153 mg/dL (70-99) 272 mg/dL (70-99) White Blood Count 7.1 x10^3/uL (4.0-11.0) Red Blood Count 3.75 x10^6/uL (4.30-5.70) Hemoglobin 10.8 g/dL (13.0-17.5) Hematocrit 33.4 % (39.0-53.0) Mean Corpuscular Volume 89 fL (79-100) Mean Corpuscular Hemoglobin 29 pg (25-35) Mean Corpuscular Hemoglobin Concent 32 g/dL (31-37) Red Cell Distribution Width 16.5 % (11.5-14.5) Platelet Count 129 x10^3/uL (140-400) Neutrophils (%) (Auto) 70 % (31-73) Lymphocytes (%) (Auto) 13 % (24-48) Monocytes (%) (Auto) 13 % (0-9) Eosinophils (%) (Auto) 3 % (0-3) Basophils (%) (Auto) 1 % (0-3) Neutrophils # (Auto) 4.9 x10^3uL (1.8-7.7) Lymphocytes # (Auto) 0.9 x10^3/uL (1.0-4.8) Monocytes # (Auto) 0.9 x10^3/uL (0.0-1.1) Eosinophils # (Auto) 0.2 x10^3/uL (0.0-0.7) Basophils # (Auto) 0.1 x10^3/uL (0.0-0.2) Prothrombin Time 28.8 SEC (11.7-14.0) Prothromb Time International Ratio 2.7 (0.8-1.1) Sodium Level 141 mmol/L (136-145) Potassium Level 4.1 mmol/L (3.5-5.1) Chloride Level 100 mmol/L (98-107) Carbon Dioxide Level 33 mmol/L (21-32) Anion Gap 8 (6-14) Blood Urea Nitrogen 150 mg/dL (8-26) Creatinine 3.2 mg/dL (0.7-1.3) Estimated GFR (Cockcroft-Gault) 19.4 Glucose Level 171 mg/dL (70-99) Calcium Level 8.9 mg/dL (8.5-10.1) Phosphorus Level 4.5 mg/dL (2.6-4.7) Albumin 3.0 g/dL (3.4-5.0) Test 03/04/19 07:45 Glucose (Fingerstick) 142 mg/dL (70-99) Medications Current Medications Allopurinol (Zyloprim) 100 mg DAILY PO Last administered on 03/04/19at 08:43; Start 03/01/19 at 09:00 Aspirin (Children'S Aspirin) 81 mg DAILY PO Last administered on 03/04/19 08:44; Start 03/01/19 at 09:00 Carvedilol (Coreg) 3.125 mg BIDWMEALS PO Last administered on 03/04/19 08:44; Start 02/28/19 at 18:00 Isosorbide Mononitrate (Imdur) 30 mg DAILY PO Last administered on 03/04/19 08:44; Start 03/01/19 at 09:00 Levetiracetam (Keppra) 500 mg BID PO Last administered on 03/01/19 08:32; Start 02/28/19 at 21:00; Stop 03/01/19 at 11:33; Status DC Potassium Chloride (Klor-Con) 10 meq DAILY08 PO Last administered on 03/03/19 09:08; Start 03/01/19 at 08:00 Warfarin Sodium (Coumadin - No Dose Today) 1 each DAILY MC ; Start 03/01/19 at 09:00; Status UNV Vitamin D (Vitamin D3) 1,000 unit DAILY PO Last administered on 03/04/19 08:43; Start 03/01/19 at 09:00 Glimepiride (Amaryl) 1 mg DAILY PO Last administered on 03/01/19 08:37; Start 03/01/19 at 09:00; Stop 03/01/19 at 11:33; Status DC Guaifenesin (MUCINEX ER with DM) 1 tab BID PO Last administered on 03/04/19 08:43; Start 02/28/19 at 21:00 Lisinopril (Prinivil) 5 mg BID PO Last administered on 03/04/19 08:43; Start 02/28/19 at 21:00 Loperamide HCl (Imodium) 2 mg DAILY PO ; Start 03/01/19 at 09:00; Stop 03/01/19 at 09:27; Status DC Multivitamins (Thera M Plus) 1 tab DAILY PO Last administered on 03/04/19 08:43; Start 03/01/19 at 09:00 Torsemide (Demadex) 20 mg DAILY PO ; Start 03/01/19 at 09:00; Stop 03/01/19 at 10 :50; Status DC Warfarin Sodium (Coumadin Per Pharmacy) 1 each PRN DAILY PRN MC SEE COMMENTS Last administered on 03/03/19 15:18; Start 02/28/19 at 17:30 Warfarin Sodium (Coumadin) 2.5 mg DAILY16 PO Last administered on 03/03/19 16:36; Start 02/28/19 at 18:00 Loperamide HCl (Immodium Oral Susp) 1 mg DAILY PO Last administered on 03/02/19 09:17; Start 03/01/19 at 09:45 Bumetanide (Bumex) 5 mg DAILY IV Last administered on 03/02/19 09:17; Start 03/01/19 at 11:15 Potassium Chloride (Klor-Con) 20 meq 1X ONCE PO Last administered on 03/01/19 13:08; Start 03/01/19 at 11:15; Stop 03/01/19 at 11:21; Status DC Insulin Glargine (Lantus) 4 units QHS SQ ; Start 03/01/19 at 21:00 Insulin Human Lispro (HumaLOG) 0-5 UNITS TIDWMEALHC SQ ; Start 03/01/19 at 12:00 Dextrose (Dextrose 50%-Water Syringe) 12.5 gm PRN Q15MIN PRN IV SEE COMMENTS; Start 03/01/19 at 11:30 Hydralazine HCl (Apresoline) 10 mg TID PO Last administered on 03/02/19 13:10; Start 03/01/19 at 14:00 Acetaminophen (Tylenol) 650 mg PRN Q6HRS PRN PO pain Last administered on 03/03/19 21:00; Start 03/02/19 at 11:45 Potassium Chloride (Klor-Con) 40 meq 1X ONCE PO Last administered on 03/02/19 11:53; Start 03/02/19 at 11:45; Stop 03/02/19 at 11:46; Status DC Prochlorperazine Edisylate (Compazine) 5 mg 1X ONCE IV Last administered on 03/02/19 13:11; Start 03/02/19 at 12:15; Stop 03/02/19 at 12:16; Status DC Acetaminophen/ Hydrocodone Bitart (Lortab 5/325) 1 tab PRN Q4HRS PRN PO PAIN MODERATE; Start 03/02/19 at 20:45 Trazodone HCl (Desyrel) 100 mg PRN QHS PRN PO INSOMNIA; Start 03/02/19 at 20:45; Stop 03/02/19 at 20:45; Status DC Mirtazapine (Remeron Tirsh-Tab) 15 mg QHS PO ; Start 03/02/19 at 21:00; Stop 03/02/19 at 21:00; Status DC Active Scripts Active Reported Glimepiride 1 Mg Tablet 1 Tab PO DAILY Vitamin D (Cholecalciferol (Vitamin D3)) 1,000 Unit Capsule 1 Cap PO DAILY Isosorbide Mononitrate Er (Isosorbide Mononitrate) 30 Mg Tab.er.24h 1 Tab PO DAILY Guaifenesin 1,200 Mg Tab.er.12h 1,200 Mg PO PRN 3-4XDAILY Potassium Chloride 10 Meq Tab.sr.24h 10 Meq PO DAILY Lisinopril 5 Mg Tablet 1 Tab PO BID Multivitamins (Multivitamin) 1 Each Tablet 1 Tab PO DAILY Aspirin 81 Mg Tab.chew 1 Tab PO DAILY Warfarin Sodium 2.5 Mg Tablet 2.5 Mg PO DAILY Loperamide (Loperamide Hcl) 2 Mg Capsule 1 Mg PO DAILY Levetiracetam 500 Mg Tablet 1 Tab PO BID Torsemide 20 Mg Tablet 5 Tab PO DAILY Carvedilol (Carvedilol) 3.125 Mg Tablet 3.125 Mg PO BIDWMEALS Allopurinol 100 Mg Tablet 1 Tab PO DAILY Vitals/I & O Vital Sign - Last 24 Hours 03/03/19 03/03/19 03/03/19 03/03/19 11:19 15:20 16:36 19:20 Temp 97.5 98.4 97.5 98.4 Pulse 90 81 81 Resp 18 18 B/P (MAP) 108/61 (77) 110/45 (66) 110/45 Pulse Ox 96 92 O2 Delivery Nasal Cannula Nasal Cannula Nasal Cannula O2 Flow Rate 2.0 2.0 2.0 03/03/19 03/03/19 03/03/19 03/03/19 19:30 21:01 21:01 23:12 Temp 98.0 98.2 98.0 98.2 Pulse 72 72 72 82 Resp 18 18 B/P (MAP) 83/44 (57) 83/44 83/44 85/52 (63) Pulse Ox 97 95 O2 Delivery Nasal Cannula Nasal Cannula O2 Flow Rate 2.0 2.0 03/04/19 03/04/19 03/04/19 03/04/19 03:00 07:00 08:00 08:43 Temp 98.2 97.9 98.2 97.9 Pulse 86 82 82 Resp 18 20 B/P (MAP) 148/44 (78) 124/68 (86) 124/68 Pulse Ox 5 98 O2 Delivery Nasal Cannula Nasal Cannula Nasal Cannula O2 Flow Rate 2.0 2.0 2.0 03/04/19 03/04/19 08:44 08:44 Pulse 82 82 B/P (MAP) 124/68 124/68 Intake and Output 03/03/19 03/03/19 03/04/19 14:59 22:59 06:59 Intake Total 300 ml 800 ml 400 ml Balance 300 ml 800 ml 400 ml HIGINIO BAEZL K III DO March 04, 2019 09:56
[2019-03-04 11:00] VITALS: BP 102/55
--- NOTE | 2019-03-04 11:20 | PDOC ---
Renal-Progress Notes Subjective Notes Notes NO NEW COMPLAINTS History of Present Illness Hx of present illness NO CHANGES Vitals Vitals Vital Signs Date Time Temp Pulse Resp B/P (MAP) Pulse Ox O2 Delivery O2 Flow Rate FiO2 03/04/19 08:44 82 124/68 03/04/19 08:00 Nasal Cannula 2.0 03/04/19 07:00 97.9 20 98 97.9 Weight Weight [ ] I.O. Intake and Output Intake and Output 03/04/19 07:00 Intake Total 1500 ml Balance 1500 ml Intake Oral 1500 ml # Voids 7 # Bowel Movements 2 Labs Labs Laboratory Tests Test 03/03/19 16:39 03/03/19 20:36 03/04/19 03:40 03/04/19 07:45 Glucose (Fingerstick) 153 mg/dL (70-99) 272 mg/dL (70-99) 142 mg/dL (70-99) White Blood Count 7.1 x10^3/uL (4.0-11.0) Red Blood Count 3.75 x10^6/uL (4.30-5.70) Hemoglobin 10.8 g/dL (13.0-17.5) Hematocrit 33.4 % (39.0-53.0) Mean Corpuscular Volume 89 fL (79-100) Mean Corpuscular Hemoglobin 29 pg (25-35) Mean Corpuscular Hemoglobin Concent 32 g/dL (31-37) Red Cell Distribution Width 16.5 % (11.5-14.5) Platelet Count 129 x10^3/uL (140-400) Neutrophils (%) (Auto) 70 % (31-73) Lymphocytes (%) (Auto) 13 % (24-48) Monocytes (%) (Auto) 13 % (0-9) Eosinophils (%) (Auto) 3 % (0-3) Basophils (%) (Auto) 1 % (0-3) Neutrophils # (Auto) 4.9 x10^3uL (1.8-7.7) Lymphocytes # (Auto) 0.9 x10^3/uL (1.0-4.8) Monocytes # (Auto) 0.9 x10^3/uL (0.0-1.1) Eosinophils # (Auto) 0.2 x10^3/uL (0.0-0.7) Basophils # (Auto) 0.1 x10^3/uL (0.0-0.2) Prothrombin Time 28.8 SEC (11.7-14.0) Prothromb Time International Ratio 2.7 (0.8-1.1) Sodium Level 141 mmol/L (136-145) Potassium Level 4.1 mmol/L (3.5-5.1) Chloride Level 100 mmol/L (98-107) Carbon Dioxide Level 33 mmol/L (21-32) Anion Gap 8 (6-14) Blood Urea Nitrogen 150 mg/dL (8-26) Creatinine 3.2 mg/dL (0.7-1.3) Estimated GFR (Cockcroft-Gault) 19.4 Glucose Level 171 mg/dL (70-99) Calcium Level 8.9 mg/dL (8.5-10.1) Phosphorus Level 4.5 mg/dL (2.6-4.7) Albumin 3.0 g/dL (3.4-5.0) Test 03/04/19 11:11 Glucose (Fingerstick) 291 mg/dL (70-99) Review of Systems Constitutional: yes: alert, oriented Ears/Nose/Throat: Yes: no symptom reported Eyes: Yes: no symptom reported Pulmonary: Yes dyspnea Cardiovascular: Yes no symptom reported Gastrointestional: Yes: no symptom reported Genitourinary: Yes: no symptom reported Skin: Yes no symptom reported Psychiatric/Neurological: Yes: no symptom reported Endocrine: Yes: no symptom reported Physical Exam General Appearance: no apparent distress Respiratory: decreased breath sounds Heart: S1S2 Abdomen: soft, bowel sounds present Genitourinary: bladder flat Extremities: pulses present Neurology: alert Assessment Assessment IMP ELENA WORSE CKD STAGE 4 TO NOW ESRD CHF - ACUTE SYSTOLIC AND DIASTOLIC AFIB HX-ANTICOAGULATION DM II HX HYPOKALEMIA PLAN HE DOES NOT WANT DIALYSIS RESUME PO DIURETICS, DEMADEX AND METOLAZONE CONT ADAN-I LONG D/W PT AND PT WANTS HOSPICE THIS IS BEING ARRANGED WILL SIGN OFF MALLORIE HOLT MD March 04, 2019 11:20
[2019-03-04] MEDS: TORSEMIDE 20 MG TABLET. PO SCH (11:37)
[2019-03-04] MEDS: metOLazone 2.5 MG TABLET PO SCH (11:37)
--- NOTE | 2019-03-04 12:54 | SNU/HH DC ---
DISCHARGE ORDERS DISCHARGE INFORMATION: CONDITION ON DISCHARGE: Stable CODE STATUS: Code Status: DNR/DNI DETENTION: SNF STAY <30 DAYS: No HOSPICE: HOSPICE: Yes HOSPICE EVAL & TREAT: Yes LTAC: ADMIT TO LTAC: No POST DISCHARGE ORDERS: ACTIVITY ORDERS: Bedrest today DIET AFTER DISCHARGE: Renal DISCHARGE MEDICATIONS: Home Meds Reported Medications Glimepiride (GLIMEPIRIDE) 1 Mg Tablet, 1 TAB PO DAILY for blood sugar, #30 TAB 5 Refills 02/28/19 Cholecalciferol (Vitamin D3) (VITAMIN D) 1,000 Unit Capsule, 1 CAP PO DAILY for supplement, #30 CAP 3 Refills 02/28/19 Isosorbide Mononitrate (ISOSORBIDE MONONITRATE ER) 30 Mg Tab.er.24h, 1 TAB PO DAILY for htn, #30 TAB 5 Refills 02/28/19 Guaifenesin (Guaifenesin) 1,200 Mg Tab.er.12h, 1200 MG PO PRN 3-4XDAILY for cough, TAB.SR 02/28/19 Potassium Chloride (POTASSIUM CHLORIDE) 10 Meq Tab.sr.24h, 10 MEQ PO DAILY for supplement, TAB.SR 02/28/19 Lisinopril (LISINOPRIL) 5 Mg Tablet, 1 TAB PO BID for htn, #30 TAB 5 Refills 02/28/19 Multivitamin (MULTIVITAMINS) 1 Each Tablet, 1 TAB PO DAILY for supplement, #90 TAB 3 Refills 02/28/19 Aspirin (ASPIRIN) 81 Mg Tab.chew, 1 TAB PO DAILY for heart, #30 TAB 3 Refills 02/28/19 Warfarin Sodium (WARFARIN SODIUM) 2.5 Mg Tablet, 2.5 MG PO DAILY for anitcoagulant, TAB 02/28/19 Loperamide Hcl (LOPERAMIDE) 2 Mg Capsule, 1 MG PO DAILY for anti diarrhea, CAP 02/28/19 Levetiracetam (LEVETIRACETAM) 500 Mg Tablet, 1 TAB PO BID for seizures, #180 TAB 3 Refills 02/28/19 Torsemide (TORSEMIDE) 20 Mg Tablet, 5 TAB PO DAILY for diuretic, #90 TAB 1 Refill 02/28/19 Carvedilol (CARVEDILOL ) 3.125 Mg Tablet, 3.125 MG PO BIDWMEALS for CARDIAC, TAB 02/28/19 Allopurinol (ALLOPURINOL) 100 Mg Tablet, 1 TAB PO DAILY for gout, #30 TAB 5 Refills 02/28/19 LACEY BAEZ III DO March 04, 2019 12:54
--- NOTE | 2019-03-04 14:30 | NUR ---
SS following up with discharge planning. Pt and family wanting to discharge to home with hospice services. SS met with pt and spouse to discuss hospice options and current living situation. Pt's spouse reported that [facility] has approved for them to stay with her daughter for the rest of the month until they can find an apartment. Pt's spouse provided SS with address. Hospice options discussed and pt and spouse chose [facility]. SS phoned and faxed referral to [facility], ; fax [phone]. SS will await hospice set up and DME delivery and will proceed accordingly with discharge planning.
[2019-03-04 15:00] VITALS: BP 98/58
--- NOTE | 2019-03-04 15:57 | PDOC2 ---
PALLIATIVE CARE Palliative Care Note Palliative Care Spoke with patient and . Family has chosen [facility]. They will be able to live with daughter until the end of the month. Carole ARELLANO assisting with discharge plan. Outside the Hospital DNR/DNI form sign and will be sent home with patient. DOUG MATTA March 04, 2019 15:57
[2019-03-04] MEDS ORDERED: WARFARIN 2 MG TABLET. PO ONE (16:00)
--- NOTE | 2019-03-04 17:27 | NUR ---
wound care per NAVIN Casper patient leaving tomorrow with hospice. patient evaluated at [facility] on Sunday02/28/19, and recommendations of Xeroform gauze, abd pads, Kerlix and tape at this time. recommend to continue this recommendation.
[2019-03-04 19:00] VITALS: BP 117/86
--- NOTE | 2019-03-04 19:15 | NUR ---
Pt sitting up in chair assessment completed vss poc explained pt denies pain but c/o diarrhea and request immodium will resume care and continue to monitor pt.
[2019-03-04] MEDS: INSULIN GLARGINE 300 UNITS/3 ML INSULN.PEN. SQ SCH (20:50)
[2019-03-04 23:27] VITALS: BP 110/54
[2019-03-05 03:00] VITALS: BP 117/79
[2019-03-05 03:52] LABS: BASO # 0.1 x10^3/uL (0.0-0.2); BASO % 1 % (0-3); EOS # 0.2 x10^3/uL (0.0-0.7); EOS % 3 % (0-3); HEMATOCRIT 33.8 % (39.0-53.0); HEMOGLOBIN 10.7 g/dL (13.0-17.5); LYMPH % 14 % (24-48); MEAN CORPUSCULAR HEMOGLOBIN 28 pg (25-35); MEAN CORPUSCULAR HGB CONC 32 g/dL (31-37); MEAN CORPUSCULAR VOLUME 89 fL (79-100); MONO % 13 % (0-9); NEUT % 69 % (31-73); PLATELET COUNT 130 x10^3/uL (140-400); RED CELL DISTRIBUTION WIDTH 16.6 % (11.5-14.5); WHITE BLOOD COUNT 7.2 x10^3/uL (4.0-11.0)
[2019-03-05 03:57] LABS: PROTHROMBIN TIME PATIENT 30.1 SEC (11.7-14.0)
[2019-03-05 04:07] LABS: CALCIUM 8.8 mg/dL (8.5-10.1); CREATININE 3.2 mg/dL (0.7-1.3); GFR 19.4; POTASSIUM 3.7 mmol/L (3.5-5.1)
[2019-03-05 07:45] VITALS: BP 100/65
[2019-03-05] MEDS: INSULIN LISPRO 300 UNITS/3 ML INSULN.PEN. SQ SCH (08:00)
--- NOTE | 2019-03-05 08:15 | NUR ---
Pharmacy Warfarin Dosing Note S:Pharmacy consulted to assist with anticoagulation therapy started with target INR: 2 -3 O:MILLA HEALY is a 69 year old M with Atrial Fibrillation LABS: Last INR: 2.9 Last HGB: 10.7 Last HCT: 33.8 Last PLT: 130 Last dose of 2 mg given on 03/04/19 at 1621 Previous Regimen: 2.5mg daily Vitamin K given: N Drug Interaction Changes: Ongoing Drug Interactions: A:INR of 2.9 is within desired range. Target range for this patient is: 2 -3 P: Warfarin dose: 1 mg Today at 1600 Bridge Therapy: None Next INR due 03/06/19 Pharmacy anticoagulation service will continue to follow. JEAN MARIE STEINBERG RP, 03/05/19 2357
--- NOTE | 2019-03-05 08:39 | NUR ---
SS following up with discharge planning. SS phoned and faxed discharge orders to [facility]. Pt will discharge today and return to home with family and [facility] at 1000 via [facility]. Pt, pt's spouse, and pt's RN notified.
[2019-03-05] MEDS: CHOLECALCIFEROL (VITAMIN D3) 1,000 UNIT TABLET PO SCH (08:46)
[2019-03-05] MEDS: guaiFENesin DM 600/30MG 1 TAB TAB.ER.12H PO SCH (08:47)
[2019-03-05] MEDS: metOLazone 2.5 MG TABLET PO SCH (08:47)
[2019-03-05] MEDS: ISOSORBIDE MONONITRATE ER 30 MG TAB.ER.24H PO SCH (08:49)
[2019-03-05] MEDS: hydrALAZINE 10 MG TABLET PO SCH (08:49)
[2019-03-05] MEDS: ALLOPURINOL 100 MG TABLET. PO SCH (08:49)
[2019-03-05] MEDS: ASPIRIN CHEWABLE 81 MG TABLET. PO SCH (08:49)
[2019-03-05] MEDS: MULTIVITAMIN with MINERAL TABLET. PO SCH (08:50)
[2019-03-05] MEDS: TORSEMIDE 20 MG TABLET. PO SCH (08:50)
[2019-03-05] MEDS: POTASSIUM CHLORIDE 10 MEQ TABLET.ER. PO SCH (08:50)
[2019-03-05] MEDS: LISINOPRIL 5 MG TABLET. PO SCH (08:50)
[2019-03-05 08:51] VITALS: BP 116/64
[2019-03-05] MEDS: CARVEDILOL 3.125 MG TABLET. PO SCH (08:51)
[2019-03-05] MEDS: LOPERAMIDE 2 MG/15 ML ORAL SUSP. PO SCH (08:54)
--- NOTE | 2019-03-05 11:49 | NUR ---
Discharge Note: SHELLY HEALY [facility] Discharge instructions and discharge home medications reviewed with Patient and a copy given. All questions have been answered and understanding verbalized. The following instructions and handouts were given:hx and phx Discontinued iv lines and catheter intact. Patient discharged to home hospice via EMS.
[2019-03-05] MEDS ORDERED: WARFARIN 1 MG TABLET. PO ONE (16:00)
--- NOTE | 2019-03-28 12:23 | PDOC3 ---
[facility]-Dis[facility] Summary Date of Admission: Date of Admission: March 01, 2019 Date of Discharge: Date of Discharge: March 04, 2019 Admission Diagnosis: Admitting Diagnosis: Acute on chronic systolic and diastolic heart failure Acute PR ESRD (he does not want dialysis) Discharge Diagnosis: Discharge Diagnosis: Resolving acute PR Chronic heart failure ESRD but he does not want dialysis Consults: Consults: Dr. Ortega Castro and palliative care Procedures: Procedures: None he refused cardiac catheter and refused dialysis Hospital Course: Hospital Course: Patient is a pleasant elderly male who had acute PR and presented to [facility] He was transferred here for further evaluation We did consul cardiology but the patient refused cardiac catheter We also consult nephrology for dialysis but he refused dialysis Patient was arranged for hospice and discharged Disposition: Disposition/Orders: D/C to Home w/ Hospice Activity: Activity: Resume previous activity Diet: Diet: Renal Medications: Home Meds Reported Medications Glimepiride (GLIMEPIRIDE) 1 Mg Tablet, 1 TAB PO DAILY for blood sugar, #30 TAB 5 Refills 02/28/19 Cholecalciferol (Vitamin D3) (VITAMIN D) 1,000 Unit Capsule, 1 CAP PO DAILY for supplement, #30 CAP 3 Refills 02/28/19 Isosorbide Mononitrate (ISOSORBIDE MONONITRATE ER) 30 Mg Tab.er.24h, 1 TAB PO DAILY for htn, #30 TAB 5 Refills 02/28/19 Guaifenesin (Guaifenesin) 1,200 Mg Tab.er.12h, 1200 MG PO PRN 3-4XDAILY for cough, TAB.SR 02/28/19 Potassium Chloride (POTASSIUM CHLORIDE) 10 Meq Tab.sr.24h, 10 MEQ PO DAILY for supplement, TAB.SR 02/28/19 Lisinopril (LISINOPRIL) 5 Mg Tablet, 1 TAB PO BID for htn, #30 TAB 5 Refills 02/28/19 Multivitamin (MULTIVITAMINS) 1 Each Tablet, 1 TAB PO DAILY for supplement, #90 TAB 3 Refills 02/28/19 Aspirin (ASPIRIN) 81 Mg Tab.chew, 1 TAB PO DAILY for heart, #30 TAB 3 Refills 02/28/19 Warfarin Sodium (WARFARIN SODIUM) 2.5 Mg Tablet, 2.5 MG PO DAILY for anitcoagulant, TAB 02/28/19 Loperamide Hcl (LOPERAMIDE) 2 Mg Capsule, 1 MG PO DAILY for anti diarrhea, CAP 02/28/19 Levetiracetam (LEVETIRACETAM) 500 Mg Tablet, 1 TAB PO BID for seizures, #180 TAB 3 Refills 02/28/19 Torsemide (TORSEMIDE) 20 Mg Tablet, 5 TAB PO DAILY for diuretic, #90 TAB 1 Re fill 02/28/19 Carvedilol (CARVEDILOL ) 3.125 Mg Tablet, 3.125 MG PO BIDWMEALS for CARDIAC, TAB 02/28/19 Allopurinol (ALLOPURINOL) 100 Mg Tablet, 1 TAB PO DAILY for gout, #30 TAB 5 Refills 02/28/19 Scheduled Allopurinol (Allopurinol), 1 TAB PO DAILY, (Reported) Aspirin (Aspirin), 1 TAB PO DAILY, (Reported) Carvedilol (Carvedilol ), 3.125 MG PO BIDWMEALS, (Reported) Cholecalciferol (Vitamin D3) (Vitamin D), 1 CAP PO DAILY, (Reported) Glimepiride (Glimepiride), 1 TAB PO DAILY, (Reported) Guaifenesin (Guaifenesin), 1,200 MG PO PRN 3-4XDAILY, (Reported) Isosorbide Mononitrate (Isosorbide Mononitrate Er), 1 TAB PO DAILY, (Reported) Levetiracetam (Levetiracetam), 1 TAB PO BID, (Reported) Lisinopril (Lisinopril), 1 TAB PO BID, (Reported) Loperamide Hcl (Loperamide), 1 MG PO DAILY, (Reported) Multivitamin (Multivitamins), 1 TAB PO DAILY, (Reported) Potassium Chloride (Potassium Chloride), 10 MEQ PO DAILY, (Reported) Torsemide (Torsemide), 5 TAB PO DAILY, (Reported) Warfarin Sodium (Warfarin Sodium), 2.5 MG PO DAILY, (Reported) Total Time: Total Time: 31 minutes LACEY BAEZ III DO March 28, 2019 12:23
== END 2019-03-05 10:45 | disposition hospice, home (50) | DRG 682 ==
LOC: 2 SOUTH 16:31
PROVIDERS: ADMIT Family Medicine; ATTEND Family Medicine
DX: N17.9 Acute kidney failure, unspecified (principal); I50.43 Acute on chronic combined systolic (congestive) and diastolic (congestive) heart failure; I21.4 Non-ST elevation (NSTEMI) myocardial infarction; I13.2 Hypertensive heart and chronic kidney disease with heart failure and with stage 5 chronic kidney disease, or end stage renal disease; I42.0 Dilated cardiomyopathy; N18.6 End stage renal disease; E11.22 Type 2 diabetes mellitus with diabetic chronic kidney disease; E66.01 Morbid (severe) obesity due to excess calories; E78.5 Hyperlipidemia, unspecified; E87.6 Hypokalemia; I25.10 Atherosclerotic heart disease of native coronary artery without angina pectoris; I25.2 Old myocardial infarction; I48.2 Chronic atrial fibrillation; I89.0 Lymphedema, not elsewhere classified; M10.9 Gout, unspecified; R56.9 Unspecified convulsions; Z66 Do not resuscitate; Z79.01 Long term (current) use of anticoagulants; Z82.49 Family history of ischemic heart disease and other diseases of the circulatory system; Z87.891 Personal history of nicotine dependence; Z79.82 Long term (current) use of aspirin; Z79.899 Other long term (current) drug therapy; Z88.2 Allergy status to sulfonamides; Z91.011 Allergy to milk products; Z68.39 Body mass index [BMI] 39.0-39.9, adult
CPT/HCPCS: 36415; 80048; 80053; 80069; 82962; 83735; 85025; 85610; J0780; J1815; J3490